=== PATIENT | male | born 1975 | race Caucasian/White ===

== ENCOUNTER 2023-11-13 15:29 | Outpatient (REF) | payer MEDICAID, SELFPAY ==
[2023-11-13 17:15] LABS: Cholesterol 309 mg/dL (<200); HDL Cholesterol 63 mg/dL (>40); LDL Cholesterol Calculated 178 mg/dL (<100); Triglycerides 340 mg/dL (<150)
[2023-11-13 18:29] LABS: CT PCR NOT DETECTED (Not Detect.); NG PCR NOT DETECTED (Not Detect.)
[2023-11-14 03:56] LABS: HIV AB/AG Nonreactive (Nonreactive); HIV Num 1 0.05 S/CO (0.00-0.99)
[2023-11-16 12:18] LABS: RPR Rapid Plasma Reagin NON-REACTIVE (NON-REACTIVE)
== END 2023-11-13 15:30 | disposition home or self-care (01) ==
LOC: HO.HHCL 15:29
PROVIDERS: Visit Provider Nurse Practitioner Primary Care
DX: E78.00 Pure hypercholesterolemia, unspecified (principal); Z11.3 Encounter for screening for infections with a predominantly sexual mode of transmission
CPT/HCPCS: 0353U; 36415; 80061; 86592; 87389

== ENCOUNTER 2023-12-17 10:59 | Outpatient (AMB) | payer MEDICAID, SELFPAY ==
--- NOTE | 2023-12-17 11:27 | A.OFFVIS_ITS ---
Intake Intake Visit Reasons: Vasectomy Consult Intake Note: NEW Patient presents today for Vasectomy Consult: Meds- None Allergies to Antibiotic- No Known Allergies Blood Thinner- None Patient has 1 Child, has 2 Child Milk Runner Required: No Accompanied by: Self / Same As Patient Allergies opioids Allergy (Mild, Uncoded 12/17/23 11:32) Itching HPI HPI Comments History of Present Illness Details Solomon is a 48-year-old male who is here for vasectomy consultation. He has 1 child who is 18, he has remarried in his has 2 children. He states he and his current do not want any more children. He states that currently she is on a Depo control method. Vasectomy procedure was discussed at length with the patient. He was informed that vasectomy is a safe, permanent, and effective form of control but there are risks involved. It may involve risk of hematoma, procedure failure, which is rare, sperm granuloma which may cause mild pain, and congestion which may cause sense of pressure and generally resolves after several weeks. 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 The patient was advised that it is necessary to use other types of control methods for > 12 weeks and until we evaluate semen for analysis to make sure there is no more sperm in the semen which is done after two and a half months post vasectomy. The patient is agreeable to proceed with scheduling vasectomy. He is side the [place] 30 day consent form. He would like to have it done in the office with Dr. Galvan. [facility] Surgical History History of release of tendon Social History Alcohol intake: current Alcohol intake frequency: holidays/special occasions only Patient Tobacco Use Status: Never used Tobacco Review of Systems Const All systems reviewed & are unremarkable except as noted in HPI and below Reports no additional complaints Eyes Reports no additional complaints ENT Reports no additional complaints Card Denies dyspnea Resp Denies cough and Denies dyspnea GI Reports no additional complaints Musc Reports no additional complaints Skin/Breast Denies unusual bruising Neuro Reports no additional complaints Psych Reports no additional complaints Endo Reports no additional complaints Jimmy/Lymph Reports no additional complaints Aller/Immun Reports no additional complaints Physical Exam Const General: healthy appearing, no acute distress and well developed Orientation/consciousness: patient oriented x3 HEENT Head: Yes normocephalic and Yes atraumatic Eyes Conjunctivae: conjunctivae normal Neck Neck: Yes normal visual inspection Chest Chest palpation & inspection: normal inspection of the chest Resp Effort & Inspection: normal respiratory effort Cardio Rate: regular rate GI Inspection: Yes normal to inspection Skin General skin exam: no rashes or lesions noted Neuro General: patient oriented x3 Extrem General: No pedal edema Psych Appearance: grossly normal Affect: normal affect Results AMB Urinalysis, Automated UA Leukoctes 0 Parviz/uL Last Edit by CHUCHO Koenig on 12/17/23 11:44 UA Nitrite Negative Last Edit by CHUCHO Koenig on 12/17/23 11:44 UA Urobilinogen 0.2 mg/dL Last Edit by CHUCHO Koenig on 12/17/23 11:4 4 UA Protein 0 mg/dL Last Edit by CHUCHO Koenig on 12/17/23 11:44 UA pH 6.5 Last Edit by CHUCHO Koenig on 12/17/23 11:44 UA Blood 6.5 Selvin/uL Last Edit by CHUCHO Koenig on 12/17/23 11:44 UA Specific Norton 0 Last Edit by CHUCHO Koenig on 12/17/23 11:44 UA Ketone Negative Last Edit by CHUCHO Koenig on 12/17/23 11:44 UA Bilirubin 0 mg/dL Last Edit by CHUCHO Koenig on 12/17/23 11:44 UA Glucose 0 mg/dL Last Edit by CHUCHO Koenig on 12/17/23 11:44 Results Reviewed Results Reviewed: Laboratory Last Values Urine pH (Auto) 6.5 12/17/23 11:42 Specific Norton (Auto) 0 12/17/23 11:42 Urine Protein (Auto) 0 mg/dL 12/17/23 11:42 Glucose (UA)(Auto) 0 mg/dL 12/17/23 11:42 Urine Ketones (Auto) Negative 12/17/23 11:42 Urine Blood (Auto) 6.5 Selvin/uL 12/17/23 11:42 Urine Nitrite (Auto) Negative 12/17/23 11:42 Urine Bilirubin (Auto) 0 mg/dL 12/17/23 11:42 Urine Urobilinogen (Auto) 0.2 mg/dL 12/17/23 11:42 Leukocyte Esterase (Auto) 0 Parviz/uL 12/17/23 11:42 Assessment & Plan Assessment & Plan (1) Vasectomy evaluation: Code(s): Z30.09 - Encounter for other general counseling and advice on contraception (2) Anxiety about health: Code(s): R45.89 - Other symptoms and signs involving emotional state Plan Schedule vasectomy in the office with Dr. Galvan Orders: Orders AMB Urinalysis Automated Today Z13.9 - Encounter for screening, unspecified Patient Instructions: The patient had an opportunity to ask questions regarding treatment plan. All questions were answered. No major barriers to understanding were identified. The patient expressed understanding and agreement with the above treatment plan. The patient is aware they should contact our office by phone for worsening of their current condition or the appearance of new symptoms. Compliance is encouraged with any medications and followup testing that is ordered. It is a privilege to be allowed the opportunity to participate in the urologic care of your patient. If you have any questions or concerns regarding treatment for the above conditions please do not hesitate to contact me. The office telephone contact is [phone]. This note is constructed in part using voice recognition software. While every effort has been made to ensure accuracy engine cowling installer errors may have been included. Yours sincerely, Americo Huerta MD Coding Level of Care Code New Pt Level 4 (13387) Diagnoses Vasectomy evaluation Z30.09 Anxiety about health R45.89
== END 2023-12-17 12:12 | disposition home or self-care (01) ==
PROVIDERS: PCP Nurse Practitioner Primary Care; Visit Provider Urology
DX: Z30.09 Encounter for other general counseling and advice on contraception (principal); R45.89 Other symptoms and signs involving emotional state; Z13.9 Encounter for screening, unspecified
CPT/HCPCS: 99204

== ENCOUNTER → 2023-12-17 10:59 | Outpatient (BNVA) | payer MEDICAID, SELFPAY | PROVIDERS: PCP Nurse Practitioner Primary Care; Visit Provider Urology | DX: Z30.09 Encounter for other general counseling and advice on contraception (principal); F41.8 Other specified anxiety disorders | CPT/HCPCS: 81003; 99202 ==

== ENCOUNTER 2024-03-18 15:10 | Outpatient (AMB) | payer MEDICAID, SELFPAY ==
--- NOTE | 2024-03-18 15:37 | A.OFFVIS_ITS ---
Intake Visit Reasons: vasectomy Intake Note: Patient is present for vasectomy Allergies opioids Allergy (Mild, Uncoded 12/17/23 11:32) Itching Medication List - Last Reconciled 03/18/24 by Danis Galvan MD bupropion HCl 75 mg PO DAILY citalopram 40 mg PO QAM diazepam 2 mg PO BID PRN 1 day HPI Comments Details: Solomon is a 48-year-old male who is here for vasectomy consultation. He has 1 child who is 18, he has remarried in his has 2 children. He states he and his current do not want any more children. He states that currently she is on a Depo control method. Vasectomy procedure was discussed at length with the patient. He was informed that vasectomy is a safe, permanent, and effective form of control but there are risks involved. It may involve risk of hematoma, procedure failure, which is rare, sperm granuloma which may cause mild pain, and congestion which may cause sense of pressure and generally resolves after several weeks. 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 The patient was advised that it is necessary to use other types of control methods for > 12 weeks and until we evaluate semen for analysis to make sure there is no more sperm in the semen which is do ne after two and a half months post vasectomy. The patient is agreeable to proceed with scheduling vasectomy. He is side the [place] 30 day consent form. He would like to have it done in the office with Dr. Galvan. [facility] Surgical History History of release of tendon Social History Alcohol intake: current Alcohol intake frequency: holidays/special occasions only Patient Tobacco Use Status: Never used Tobacco Review of Systems Const Denies chills and Denies fever(s) Card Reports no additional complaints and Denies syncope Resp Denies cough GI Denies abdominal pain and Denies heartburn Reports as per HPI and Denies change in libido Neuro Denies syncope Psych Denies change in libido Endo Denies change in libido Physical Exam Const General: cooperative, healthy appearing, comfortable and no acute distress Orientation/consciousness: patient oriented x3 HEENT Face and sinus: Yes normal facial exam Mouth: moist mucous membranes Neck Neck: Yes normal visual inspection, Yes full ROM and Yes trachea midline Chest Chest palpation & inspection: normal inspection of the chest Resp Effort & Inspection: normal respiratory effort, able to speak in complete sentences and no respiratory distress GI Inspection: Yes normal to inspection Back/Spine/Pelvis Cervical Spine: normal cervical lordosis Thoracic/Lumbar Spine: thoracic and lumbar spine normal to inspection Skin General skin exam: no rashes or lesions noted Neuro General: patient oriented x3, gait normal, tone normal and moves all extremities Extrem General: Yes normal to inspection and Yes capillary refill normal Office Procedures Vasectomy Details: Preoperative diagnosis: Anxiety regarding Postoperative diagnosis: Anxiety regarding unplanned Procedure: Bilateral vasectomy Informed consent had been completed. Preoperative and postoperative instructions were provided to the patient. The patient has transportation to home identified at the completion of the procedure. Anti-anxiolytic prescription medication had been taken after consent verification and all questions answered. Tylenol with Codeine pain medication was also provided. The penis was elevated using a rubber band that was attached to the patient's shirt. Both vasa were palpated through the skin using a 3 finger technique and the penoscrotal junction was prepped with Betadine. After Betadine application the left vas was elevated using a 3 finger grasping technique. 1% lidocaine was used to create a subdermal bubble. Further anesthetic was then advanced using the 25-gauge needle along the vasa in a proximal fashion. Approximately 2 minutes were allowed to for local anesthetic uptake. Using the sharp spreading instrument the scrotal skin was spread longitudinally in line with the vasa until the subdermal layer had been divided. The vasa was then elevated from the scrotum using a ring clamp. Care was taken to elevate the superior portion of the vasa by rotating the ring clamp in a caudad direction. The battery powered cautery was used to divide the vasal sheath in a longitudinal direction on the exposed vasa and to strip the vasal sheath from the vasa. A 2nd narrower ring clamp was placed on the exposed vas and used to lift the vas from the vasal sheath. so it grasped the elevated vas. The cautery was used to divide vasal attachments and allow full exposure of a small loop of vasa. The sharp spreading instrument was then used to create a tunnel under the vasa and spread to allow the blood vessels of the vasa to retract from the vasa. A mosquito clamp was placed on the proximal portion of the vas. The battery- powered cautery was used to make a partial division in the proximal vas and then inserted in order to cauterize the proximal end of the vas. This was then cut and allowed to retract into the vasal sheath. The mosquito was then used to twist the vasa 180 degrees creating a fascial interposition. Using a 4-0 chromic suture the fascial interposition was sutured closed. The distal portion of the vas was then cut in order to obtain a segment of vasa. The vasa were allowed to retract back into the scrotum. A small snap was then used to approximate the skin edges and allow hemostasis without placement of a suture. A similar procedure was repeated on the right side. He tolerated the procedure well. Triple antibiotic was applied. A gauze was applied. An ice pack was applied to assist with minimizing swelling. Postoperative instructions were confirmed. He understands the need to continue to use control methods. A semen sample should be brought for inspection under the microscope in 10-12 weeks. CPT 62407 Vasectomy performed by: Danis Galvan Informed consent given: Yes Informed consent signed: Yes Time out checklist: patient, procedure, site marked/identified, positioning of patient, supplies available, allergies confirmed and team agrees on procedure Anesthetic used: other Specimens: vas segments not sent to pathology 82071 - Vasectomy Assessment & Plan Assessment & Plan (1) Anxiety about health: Code(s): R45.89 - Other symptoms and signs involving emotional state Category: Medical Plan 3m f/u Medications: New diazepam Take medication after arrival at office 2 mg PO BID PRN 2 tabs 0RF anxiety 1 day R45.89 - Other symptoms and signs involving emotional state diazepam Take medication after arrival at office 2 mg PO BID PRN 2 tabs 0RF anxiety 1 day R45.89 - Other symptoms and signs involving emotional state Patient Instructions: Imaging studies, laboratory and physical exam results were discussed and reviewed in detail. No major barriers to patient understanding were identified. An opportunity to ask questions regarding the treatment plan was provided. All questions were answered. The patient expressed understanding and agreement with the above treatment plan. The patient is aware they should contact our office by phone for worsening of their current condition or the appearance of new urologic symptoms. Compliance is encouraged with any medications and followup testing that is ordered. It is a privilege to participate in the urologic care of your patient. If you have any questions or concerns regarding treatment for the above conditions, or other urologic issues, please do not hesitate to contact me. The office telephone contact is [phone]. This note is constructed using voice recognition software. While every effort has been made to ensure accuracy instructor looping errors may have been included. Yours sincerely, Dr Danis Galvan MD, [facility] - Urology Providers of Expert, Compassionate Care for the Genitourinary System Coding Level of Care Code Procedure Only Diagnoses Anxiety about health R45.89 CPT Codes Office Procedure - CPT: 66516 - Vasectomy ([id number])
== END 2024-03-18 16:27 | disposition home or self-care (01) ==
PROVIDERS: PCP Nurse Practitioner Primary Care; Referring Provider Family Medicine; Visit Provider Urology
DX: Z30.2 Encounter for sterilization (principal)
CPT/HCPCS: 55250

== ENCOUNTER → 2024-03-18 15:10 | Outpatient (BNVA) | payer MEDICAID, SELFPAY | PROVIDERS: PCP Nurse Practitioner Primary Care; Visit Provider Urology | DX: Z30.2 Encounter for sterilization (principal); F41.8 Other specified anxiety disorders | CPT/HCPCS: 55250 ==

== ENCOUNTER 2024-06-17 13:32 | Outpatient (AMB) | payer MEDICAID, SELFPAY ==
--- NOTE | 2024-06-17 13:35 | MHC.OFFVIS ---
Intake Visit Reasons: 3m/ semen analysis Intake Note: Patient is present for 3M/SEMEN ANALYSIS Urology Medication:DIAZEPAM Antibiotic Allergy:NONE Blood Thinner:NONE Admission Nurse Required: No Allergies opioids Allergy (Mild, Uncoded 06/17/24 13:36) Itching HPI Comments Details: Solomon is a 48-year-old male who is here for vasectomy follow-up. Minimal issues following procedure No sperm seen on high-powered field evaluation in office today from sample [facility] Surgical History History of release of tendon Social History Alcohol intake: current Alcohol intake frequency: holidays/special occasions only Patient Tobacco Use Status: Never used Tobacco Review of Systems Const Denies chills and Denies fever(s) Card Reports no additional complaints and Denies syncope Resp Denies cough GI Denies abdominal pain and Denies heartburn Reports as per HPI and Denies change in libido Neuro Denies syncope Psych Denies change in libido Endo Denies change in libido Physical Exam Const General: cooperative, healthy appearing, comfortable and no acute distress Orientation/consciousness: patient oriented x3 HEENT Face and sinus: Yes normal facial exam Mouth: moist mucous membranes Neck Neck: Yes normal visual inspection, Yes full ROM and Yes trachea midline Chest Chest palpation & inspection: normal inspection of the chest Resp Effort & Inspection: normal respiratory effort, able to speak in complete sentences and no respiratory distress GI Inspection: Yes normal to inspection Back/Spine/Pelvis Cervical Spine: normal cervical lordosis Thoracic/Lumbar Spine: thoracic and lumbar spine normal to inspection Skin General skin exam: no rashes or lesions noted Neuro General: patient oriented x3, gait normal, tone normal and moves all extremities Extrem General: Yes normal to inspection and Yes capillary refill normal Assessment & Plan Assessment & Plan (1) Anxiety about health: Code(s): R45.89 - Other symptoms and signs involving emotional state Category: Medical Plan P.r.n. follow-up Patient Instructions: Imaging studies, laboratory and physical exam results were discussed and reviewed in detail. No major barriers to patient understanding were identified. An opportunity to ask questions regarding the treatment plan was provided. All questions were answered. The patient expressed understanding and agreement with the above treatment plan. The patient is aware they should contact our office by phone for worsening of their current condition or the appearance of new urologic symptoms. Compliance is encouraged with any medications and followup testing that is ordered. It is a privilege to participate in the urologic care of your patient. If you have any questions or concerns regarding treatment for the above conditions, or other urologic issues, please do not hesitate to contact me. The office telephone contact is [phone]. This note is constructed using voice recognition software. While every effort has been made to ensure accuracy home health care respiratory therapist errors may have been included. Yours sincerely, Dr Danis Galvan MD, [facility] - Urology Providers of Expert, Compassionate Care for the Genitourinary System Coding Level of Care Code Est Pt Level 3 (43664) Diagnoses Anxiety about health R45.89
== END 2024-06-17 14:52 | disposition home or self-care (01) ==
PROVIDERS: PCP Nurse Practitioner Primary Care; Referring Provider Nurse Practitioner Primary Care; Visit Provider Urology
DX: R45.89 Other symptoms and signs involving emotional state (principal)
CPT/HCPCS: 99213

== ENCOUNTER → 2024-06-17 13:32 | Outpatient (BNVA) | payer MEDICAID, SELFPAY | PROVIDERS: PCP Nurse Practitioner Primary Care; Visit Provider Urology | DX: R45.89 Other symptoms and signs involving emotional state (principal); Z30.8 Encounter for other contraceptive management; Z98.52 Vasectomy status | CPT/HCPCS: 99212 ==

== ENCOUNTER 2024-12-19 14:13 | Outpatient (REF) | payer SELFPAY ==
--- OUTSIDE RECORDS SUMMARY | 2024-12-19 16:39 | XMS_ITS | Encounter Summary ---
Author Organization [email or web address] Address [address] [place] [address] Care Team Providers Care Dinkey Driver Name Role Phone Cheryle Rubalcava Primary Care Provider [phone] Reason for Visit * Reason Comments Med Refill Encounter Details Date Type Department Care Team ([facility] st Contact Info) Description 12/01/2024 Refill [facility] [address] [place], [place] [phone] Cheryle Rubalcava ANP [address] [place], [place] [phone] Anxiety and depression; Impaired concentration Social History Tobacco Use Types Packs/Day Years Used Date Smoking Tobacco: Never Smokeless Tobacco: Never Alcohol Use Standard Drinks/Week Comments Not Currently 0 (1 standard drink = 0.6 oz pur e alcohol) Depression Answer Date Recorded Patient Health Questionnaire-9 Score 0 11/13/2023 Patient Health Questionnaire-9 Score 0 11/13/2023 Last PHQ-9: Questionnaire Data Not on file 0 11/13/2023 Housing Stability Answer Date Recorded What is your housing situation today? I have belkis phelan 08/04/[address] you li ve. Do you have problems with any of the following? None of the above 08/04/2023 Food Insecurity Answer Date Recorded Within the past 12 months, y ou worried that your food would run out before you got money to buy more: Never True 08/04/2023 Within the past 12 months,th e food you bought just didn't last and you didn't have enough money to get more: Never True Transportation Answer Date Recorded In the past 12 months, has l ack of transportation kept you from medical appts, meetings, work or from getting things needed for daily living? No 08/04/2023 Utilities Answer Date Recorded In the past 12 months, has t he electric, gas, oil or water company threatened to shut off services in your home? No 08/04/2023 Depression Answer Date Recorded Patient Health Questionnaire-2 Score 0 11/13/2023 Sex and Gender Information Value Date Recorded Sex Assigned at Male 09/03/2022 2:46 PM EST Legal Sex Male 2:46 PM EST Gender Identity Male 09/03/2022 2:46 PM EST Sexual Orientation Straight 09/03/2022 2: 46 PM EST documented as of this encounter Miscellaneous Notes * Telephone Encounter - Sandi Baptiste LPN - 12/01/2024 9:19 AM EST Next appointment 12/19/24. documented in this encounter Plan of Treatment Not on file documented as of this encounter Visit Diagnoses Diagnosis Anxiety and depression Impaired concentration documented in this encounter Additional Health Concerns Assessment Noted Time PHQ-9 Depression Total Score: 0 11/13/19 24 2:36 PM EST documented as of this encounter Care Teams Dinkey Driver Relationship Specialty Start Date End Date Cheryle Rubalcava ANP [address] [place] [id number] PCP - General Family Medicine 08/14/22 documented as of this encounter
--- OUTSIDE RECORDS SUMMARY | 2024-12-19 16:39 | XMS_ITS | Encounter Summary ---
Author Organization [employer] Address [address] [place] [address] Care Team Providers Care Litigation Counsel Name Role Phone Cheryle Rubalcava Primary Care Provider [phone] Reason for Visit * Reason Comments Pre-visit Planning SDOH screening negat heike and tobacco screening positive Encounter Details Date Type Department Care Team ([facility] Contact Info) Description 12/12/[address] [facility] [address] [place], [place] [phone] Cheryle Rubalcava ANP [address] [place] [address] Pre-visit Planning (SDOH screening negative and tobacco screening positive) Social History Tobacco Use Types Packs/Day Years [...] housing situation today? I have belkis phelan 12/12/[address] you li ve. Do you have problems with any of the following? None of the above 12/12/2024 Food Insecurity Answer Date Recorded Within the past 12 months, y ou worried that your food would run out before you got money to buy more: Never True 12/12/2024 Within the past 12 months,th e food you bought just didn't last and you didn't have enough money to get more: Never True 07/2025 Transportation Answer Date Recorded In the past 12 months, has l ack of transportation kept you from medical appts, meetings, work or from getting things needed for daily living? No 12/12/2024 Utilities Answer Date Recorded In the past 12 months, has t he electric, gas, oil or water company threatened to shut off services in your home? No 12/12/2024 Depression Answer Date Recorded Patient Health Questionnaire-2 Score 0 11/13/2023 Internet Access Answer Date Recorded Internet Access Q1 Yes 12/12/2024 Internet Access Q2 Not on file 12/12/2024 Sex and Gender Information Value Date Recorded Sex Assigned at Male 09/03/2022 2:46 PM EST Legal Sex Male 2:46 PM EST Gender Identity Male 09/03/2022 2:46 PM EST Sexual Orientation Straight 09/03/2022 2: 46 PM EST documented as of this encounter Progress Notes * Dana Moore - 12/12/2024 10:05 AM EDT CC Dana placed successful outbound call to patient for pre-visit planning. Patient name and confirmed. Patient confirms appt date and time, and has transportation. Biggest concern for appointment at this time is vision care Patient advised to bring to appointment a photo id and insurance card. Appropriate screenings completed in anticipation of appointment. documented in this encounter Plan of Treatment Not on file documented as of this encounter Visit Diagnoses Not on filedocumented in this encounter Additional Health Concerns Assessment Noted Time PHQ-9 Depression Total Score: 0 11/13/19 24 2:36 PM EST documented as of this encounter Care Teams Litigation Counsel Relationship Specialty Start Date End Date Cheryle Rubalcava ANP [address] [place] [address] PCP - General Family Medicine 08/14/22 documented as of this encounter
--- OUTSIDE RECORDS SUMMARY | 2024-12-19 16:39 | XMS_ITS | Encounter Summary ---
Author Organization [employer] Address [address] [facility] 7 [place] [address] Care Team Providers Care Cmm Programmer Name Role Phone Cheryle Rubalcava Primary Care Provider [phone] Reason for Visit * Reason Onset Date Comments Med Refill 12/01/2024 Encounter Details Date Type Department Care Team ([facility] st Contact Info) Description 12/01/2024 Telephone [facility] MEDICINE [address] [place], [place] [phone] Cheryle Rubalcava ANP [address] [place] [address] Med Refill Social History Tobacco Use Types Packs/Day Years [...] Encounter - Sandi Baptiste LPN - 12/01/2024 9:20 AM EST Medication pended to PCP. * Telephone Encounter - Reynaldo Myers - 12/01/2024 9:11 AM EST TC from pt requesting medication refill. Medications needing refill : buPROPion (Wellbutrin) 75 MG tablet To be sent to: [facility]/pharmacy #[id number] - [address] [place] documented in this encounter Plan of Treatment Not on file documented as of this encounter Visit Diagnoses Not on filedocumented in this encounter Additional Health Concerns Assessment Noted Time PHQ-9 Depression Total Score: 0 11/13/19 24 2:36 PM EST documented as of this encounter Care Teams Cmm Programmer Relationship Specialty Start Date End Date Cheryle Rubalcava ANP [address] [place] [address] PCP - General Family Medicine 08/14/22 documented as of this encounter
--- OUTSIDE RECORDS SUMMARY | 2024-12-19 16:39 | XMS_ITS | Encounter Summary ---
Author Organization [employer] Address 75 [facility] 7t [place] [address] Care Team Providers Care Scrub Woman Name Role Phone Cheryle Rubalcava Primary Care Provider [phone] Encounter Details Date Type Department Care Team (Latest Contact Info) Description 12/19/2024 Travel Social History Tobacco Use Types Packs/Day Years [...] PM EST documented as of this encounter Plan of Treatment Not on file documented as of this encounter Visit Diagnoses Not on filedocumented in this encounter Additional Health Concerns Assessment Noted Time PHQ-9 Depression Total Score: 0 11/13/19 24 2:36 PM EST documented as of this encounter Care Teams Scrub Woman Relationship Specialty Start Date End Date Cheryle Rubalcava ANP [address] [place] [address] PCP - General Family Medicine 08/14/22 documented as of this encounter
--- OUTSIDE RECORDS SUMMARY | 2024-12-19 16:40 | XMS_ITS | Encounter Summary ---
Author Organization [email or web address] Address 75 [facility] 7 [place] [address] Care Team Providers Care Peoplesoft Taleo Manager Name Role Phone Cheryle Rubalcava Primary Care Provider [phone] Reason for Visit * Reason Onset Date Comments Med Refill 12/30/2023 Encounter Details Date Type Department Care Team ([facility] st Contact Info) Description 12/30/2023 Refill [facility] MEDICINE 230 [place], [place] [phone] Cheryle Rubalcava ANP [address] [place] [address] Anxiety and depression Social History Tobacco Use Types Packs/Day Years [...] encounter Visit Diagnoses Diagnosis Anxiety and depression documented in this encounter Additional Health Concerns Assessment Noted Time PHQ-9 Depression Total Score: 0 11/13/19 24 2:36 PM EST documented as of this encounter Care Teams Peoplesoft Taleo Manager Relationship Specialty Start Date End Date Cheryle Rubalcava ANP [address] [place] [address] PCP - General Family Medicine 08/14/22 documented as of this encounter
--- OUTSIDE RECORDS SUMMARY | 2024-12-19 16:40 | XMS_ITS | Encounter Summary ---
Author Organization [employer] Address 75 [facility] 7 [place] [address] Care Team Providers Care Bench Shear Operator Name Role Phone Cheryle Rubalcava Primary Care Provider [phone] Reason for Visit * Reason Onset Date Comments Med Refill 03/25/2024 Encounter Details Date Type Department Care Team ([facility] st Contact Info) Description 03/25/2024 Refill [facility] MEDICINE 230 [place], [place] [phone] Cheryle Rubalcava ANP [address] [place] [address] Anxiety and depression Social History Tobacco Use [...] documented as of this encounter Care Teams Bench Shear Operator Relationship Specialty Start Date End Date Cheryle Rubalcava ANP [address] [place] [address] PCP - General Family Medicine 08/14/22 documented as of this encounter
--- OUTSIDE RECORDS SUMMARY | 2024-12-19 16:40 | XMS_ITS | Encounter Summary ---
Author Organization [employer] Address 75 [facility] 7 [place] [address] Care Team Providers Care Silverware Etcher Name Role Phone Cheryle Rubalcava Primary Care Provider [phone] Reason for Visit * Reason Onset Date Comments Med Refill 02/24/2024 Encounter Details Date Type Department Care Team ([facility] st Contact Info) Description 02/24/[address] [facility] MEDICINE [address] [place], [place] [phone] Cheryle Rubalcava ANP 230 [place] [address] Anxiety and depression; Impaired concentration Social History [...] documented as of this encounter Care Teams Silverware Etcher Relationship Specialty Start Date End Date Cheryle Rubalcava ANP [address] [place] [address] PCP - General Family Medicine 08/14/22 documented as of this encounter
--- OUTSIDE RECORDS SUMMARY | 2024-12-19 16:40 | XMS_ITS | Encounter Summary ---
Author Organization [employer] Address 75 [facility] 7 [place] [address] Care Team Providers Care Cheese Cutter Name Role Phone Cheryle Rubalcava Primary Care Provider [phone] Reason for Visit * Reason Onset Date Comments Med Refill 03/28/2024 Encounter Details Date Type Department Care Team ([facility] st Contact Info) Description 03/28/2024 Telephone [facility] MEDICINE 230 [place], [place] [phone] Cheryle Rubalcava ANP 230 [place] [address] Med Refill Social History Tobacco Use Types [...] Telephone Encounter - Sandi Baptiste LPN - 03/28/2024 11:46 AM EDT Medication was sent to [facility] #[id number] on 02/26/24 #30 with 1 refill. * Telephone Encounter - Yana Moore - 03/28/2024 11:31 AM EDT TC from pt requesting medication refill. Medications needing refill : citalopram (CeleXA) 40 MG tablet To be sent to: [facility]/pharmacy #[id number] - [place] - [address] documented in this encounter Plan of Treatment Not on file documented as of this encounter Visit Diagnoses Not on filedocumented in this encounter Additional Health Concerns Assessment Noted Time PHQ-9 Depression Total Score: 0 11/13/19 24 2:36 PM EST documented as of this encounter Care Teams Cheese Cutter Relationship Specialty Start Date End Date Cheryle Rubalcava ANP 230 [place] [address] PCP - General Family Medicine 08/14/22 documented as of this encounter
--- OUTSIDE RECORDS SUMMARY | 2024-12-19 16:40 | XMS_ITS | Encounter Summary ---
Author Organization [employer] Address 75 [facility] 7 [place] [address] Care Team Providers Care Handle Turner Name Role Phone Cheryle Rubalcava Primary Care Provider [phone] Reason for Visit * Reason Onset Date Comments Med Refill 03/17/2024 Encounter Details Date Type Department Care Team ([facility] st Contact Info) Description 03/17/2024 Refill [facility] MEDICINE 230 [place], [place] [phone] Cheryle Rubalcava ANP 230 [place] [address] Anxiety and depression Social History Tobacco Use [...] documented as of this encounter Care Teams Handle Turner Relationship Specialty Start Date End Date Cheryle Rubalcava ANP [address] [place] [address] PCP - General Family Medicine 08/14/22 documented as of this encounter
--- OUTSIDE RECORDS SUMMARY | 2024-12-19 16:40 | XMS_ITS | Encounter Summary ---
Author Organization [employer] Address 75 [facility] 7 [place] [address] Care Team Providers Care Seam Stay Stitcher Name Role Phone Cheryle Rubalcava Primary Care Provider [phone] Reason for Visit * Reason Onset Date Comments Med Refill 01/06/2024 Encounter Details Date Type Department Care Team ([facility] st Contact Info) Description 01/06/2024 Refill [facility] MEDICINE 230 [place], [place] [phone] Cheryle Rubalcava ANP 230 [place] [address] Anxiety and depression Social History Tobacco Use [...] documented as of this encounter Care Teams Seam Stay Stitcher Relationship Specialty Start Date End Date Cheryle Rubalcava ANP [address] [place] [address] PCP - General Family Medicine 08/14/22 documented as of this encounter
--- OUTSIDE RECORDS SUMMARY | 2024-12-19 16:40 | XMS_ITS | Encounter Summary ---
Author Organization [employer] Address 75 [facility] 7 [place] [address] Care Team Providers Care Green Chain Puller Name Role Phone Cheryle Rubalcava Primary Care Provider [phone] Reason for Visit * Reason Onset Date Comments Med Refill 06/01/2024 Encounter Details Date Type Department Care Team ([facility] st Contact Info) Description 06/01/2024 Telephone [facility] MEDICINE 230 [place], [place] [phone] Cheryle Rubalcava ANP 230 [place] [address] Med Refill Social History Tobacco Use Types [...] Telephone Encounter - Sandi Baptiste LPN - 06/01/2024 4:03 PM EDT Medication pended to PCP. * Telephone Encounter - Pepe Luo - 06/01/2024 4:03 PM EDT TC from pt requesting medication refill. Medications needing refill : buPROPion (Wellbutrin) 75 MG tablet To be sent to: [facility] documented in this encounter Plan of Treatment Not on file documented as of this encounter Visit Diagnoses Not on filedocumented in this encounter Additional Health Concerns Assessment Noted Time PHQ-9 Depression Total Score: 0 11/13/19 24 2:36 PM EST documented as of this encounter Care Teams Green Chain Puller Relationship Specialty Start Date End Date Cheryle Rubalcava ANP 230 [place] [address] PCP - General Family Medicine 08/14/22 documented as of this encounter
--- OUTSIDE RECORDS SUMMARY | 2024-12-19 16:40 | XMS_ITS | Clinical Summary ---
Author Organization [employer] Address 75 [facility] 7t [place] [address] Care Team Providers Care Systems Manager Name Role Phone Cheryle Rubalcava Primary Care Provider [phone] Allergies No known active allergies Medications citalopram (CeleXA) 40 MG tabletIndications :Anxiety and depression TAKE 1 TABLET BY MOUTH EVERY DAY IN THE MORNING 90 tablet 1 08/01/20 24 Active buPROPion (Wellbutrin) 75 MG tabletIndications :Anxiety and depression,Impair ed concentration TAKE 1 TABLET BY MOUTH EVERY DAY 90 tablet 1 12/02/19 25 Active losartan (Cozaar) 50 MG tabletIndications :Primary hypertension Take 1 tablet (50 mg) by mouth Once per day. 90 tablet 3 12/20/19 25 026 Active Blood Pressure kitIndications:El evated blood pressure reading without diagnosis of hypertension 1 kit Once per day. 1 kit 12/20/19 25 Active Blood Pressure kitIndications:El evated blood pressure reading without diagnosis of hypertension 1 kit in the morning. 1 kit 03/27/20 23 025 Discontinued(Re order (will not trigger notification to Pharmacy)) losartan (Cozaar) 25 MG tablet Take 1 tablet (25 mg) by mouth in the morning. 30 tablet 11 12/23/19 24 025 Discontinued(Do se adjustment) buPROPion (Wellbutrin) 75 MG tabletIndications :Anxiety and depression,Impair ed concentration TAKE 1 TABLET BY MOUTH EVERY DAY 90 tablet 1 06/01/20 24 025 Discontinued Hospital, Clinic, or Other Facility Administered Medication Ordered Dose Route Frequency Start Date End Date Status lidocaine (Xylocaine) 2 % injection 20 mgIndications:Neoplasm of uncertain behavior 20 mg IJ Once 06/17/2024 Active Active Problems Problem Noted Date Diagnosed Date Anxiety and depression 12/23/2022 Impaired concentration 09/01/2022 Lyme disease, unspecified 04/02/2022 Depression 05/28/2016 Encounters Date Type Department Care Team Description 12/19/2024 1:30 PM EDT Office Visit [address] [address] Cheryle Rubalcava ANP Healthcare maintenance (Primary Dx); Anxiety and depression; Primary hypertension; Encounter for immunization; Elevated blood pressure reading without diagnosis of hypertension 12/19/2024 Travel 12/12/2024 Patient Outreach [address] [address] Cheryle Rubalcava ANP Pre-visit Planning (SDOH screening negative and tobacco screening positive) 12/01/[address] [address] Cheryle Rubalcava ANP Med Refill 12/01/[address] [address] Cheryle Rubalcava ANP Anxiety and depression; Impaired concentration 11/03/[address] [address] Cheryle Rubalcava ANP Referral 10/03/[address] [address] Yesi Coreas [place] November recall from Last 3 Months Immunizations Name Administration Dates Next Due Hep B, adult 11/13/2023 Influenza injectable quadriv alent preservative free 07/03/2023,08/14/2022,07/05/2018 Influenza, seasonal, injecta ble, preservative free 12/19/2024 Pfizer Covid-19 Vaccine 12+ 12/19/2024 Pfizer Covid-19 Vaccine 12+ Bivalent 03/27/2023 Tdap 11/13/2023 Social History Tobacco Use Types Packs/Day Years Used Date Smoking Tobacco: Never Smokeless Tobacco: Never Tobacco Cessation:Counseling Given: Not Answered Alcohol Use Standard Drinks/Week Comments Not Currently [...] Orientation Straight 09/03/2022 2: 46 PM EST Last Filed Vital Signs Vital Sign Reading Time Taken Comments Blood Pressure 132/98 12/19/2024 1:58 PM EDT Pulse 76 12/19/2024 1:27 PM EDT Temperature 36.7 ??C (98.1 ??F) 12/19/2024 1:27 PM ED T Respiratory Rate 20 12/19/2024 1:27 PM EDT Oxygen Saturation 97% 12/19/2024 1:27 PM EDT Inhaled Oxygen Concentration - - Weight 77 kg (169 lb 12.8 oz) 12/19/2024 1:27 PM EDT Height 170.2 cm (5' 7 ) 12/19/2024 1:27 PM EDT Body Mass Index 26.59 12/19/2024 1:27 PM EDT Plan of Treatment Health Maintenance Due Date Last Done Comments CT Colonography 1977 Colonoscopy 1977 Dental Oral Exam 1977 Dental Prophylaxis 1977 Dental X-Ray: Bitewings 1977 Dental X-Ray: Full Mouth 1977 FIT 1977 FOBT 1977 Sigmoidoscopy 1977 Family Planning (PISQ) 1992 Hepatitis B Vaccines (2 of 3 - 19+ 3-dose series) 12/11/2023 11/13/2023 Depression Screening 11/13/2024 11/13/2023, 11/13/19 24 SDOH Screening 12/12/2025 12/12/2024 Alcohol/Substance Use Screening 12/19/2025 12/19/2024 Tobacco Screening 12/19/2025 12/19/2024 Colorectal Cancer Screening 12/17/2026 FIT DNA/Cologuard 12/17/2026 12/18/2023 Zoster Vaccines (1 of 2) 2027 Lipid Panel 11/13/2028 11/13/2023, 08/14/2022 DTaP/Tdap/Td Vaccines (2 - Td or Tdap) 11/13/2033 11/13/2023 RSV Patients and Patients Aged 60 years or older (1 - 1-dose 75+ series) 2052 Hepatitis C Screening Completed 08/14/2022 HIV Screening Completed 11/13/2023, 08/14/2022 COVID-19 Vaccine Completed 12/19/2024, , 10/06/2021, Additional history exists Influenza Vaccine Completed 12/19/2024, , 08/14/2022, Additional history exists HIB Vaccines Aged Out No longer eligi ble based on patient's age to complete this topic HPV Vaccines Aged Out No longer eligi ble based on patient's age to complete this topic Hepatitis A Vaccines Aged Out No long er eligible based on patient's age to complete this topic IPV Vaccines Aged Out No longer eligi ble based on patient's age to complete this topic Meningococcal Vaccine Aged Out No leeanne el eligible based on patient's age to complete this topic Pneumococcal Vaccine: Pediatrics (0 to 5 Years) and At-Risk Patients (6 to 49) Years) Aged Out No longer eligible based on patient's age to complete this topic RSV under 20 months Aged Out No longe r eligible based on patient's age to complete this topic Rotavirus Vaccines Aged Out No longer eligible based on patient's age to complete this topic Procedures Procedure Name Priority Date/Time Associated Diagnosis Comments LAB COLOGUARD?? COLON CANCER SCREEN Routine 12/18/2023 8:12 AM EDT Screening for malignant neoplasm of colon HIV 1/2 ANTIGEN/ANTIBODY, FOURTH GENERATION W/RFL Routine 11/13/2023 3:30 PM EST Routine screening for STI (sexually transmitted infection) LIPID PANEL, STANDARD Routine 11/13/2023 12:28 PM EST Elevated LDL cholesterol level ZZZ HISTORICAL HEPATITIS C AB W/REFL TO HCV RNA, QN, PCR Routine 08/14/2022 11:59 AM EST from Last 3 Months or Most Recently Relevant to Health Maintenance Results * Cologuard?? colon cancer screening (12/18/2023 8:12 AM EDT) Cologuard Result Negative Negative 12/25/19 24 6:00 PM EDT [facility] (CLIA #:[id number]) Comment: NEGATIVE TEST RESULT. A negative Cologuard result indicates a low likelihood that a colorectal cancer (CRC) or advanced adenoma (adenomatous polyps with more advanced pre-malignant features) ??is present. The chance that a person with a negative Cologuard test has a colorectal cancer is less than 1 in 1500 (negative predictive value >99.9%) or has an ??advanced adenoma is less than ??5.3% (negative predictive value 94.7%). These data are based on a prospective cross-sectional study of 10,000 individuals at average risk for colorectal cancer who were screened with both Cologuard and colonoscopy. (Dilma Adams al, N Engl J Med 2014;370(14):1286- 1297) The normal value (reference range) for this assay is negative. COLOGUARD RE-SCREENING RECOMMENDATION: Periodic colorectal cancer screening is an important part of preventive healthcare for asymptomatic individuals at average risk for colorectal cancer. ??Following a negative Cologuard result, the [place] [employer] and U.S. Multi-Society Task Force screening guidelines recommend a Cologuard re-screening interval of 3 years. References: [place] [employer] Guideline for Colorectal Cancer Screening: https://www.cancer.org/cancer/dohjd-nldlih-krfanr/vzfoscins-ugyciuvit-lfktusa/ac s-rec ommendations.html.; Can DK, Huy KIM, Ruddy BearK, Colorectal Cancer Screening: Recommendations for Physicians and Patients from the U.S. Multi-Society Task Force on Colorectal Cancer Screening , Am J Gastroenterology 2017; 112:0566-0002. TEST DESCRIPTION: Composite algorithmic analysis of stool DNA-biomarkers with hemoglobin immunoassay. ?? Quantitative values of individual biomarkers are not reportable and are not associated with individual biomarker result reference ranges. Cologuard is intended for colorectal cancer screening of adults of either sex, 45 years or older, who are at average-risk for colorectal cancer (CRC). Cologuard has been approved for use by the U.S. FDA. The performance of Cologuard was established in a cross sectional study of average-risk adults aged 50-84. Cologuard performance in patients ages 45 to 49 years was estimated by sub-group analysis of near-age groups. Colonoscopies performed for a positive result may find as the most clinically significant lesion: colorectal cancer [4.0%], advanced adenoma (including sessile serrated polyps greater than or equal to 1cm diameter) [20%] or non- advanced adenoma [31%]; or no colorectal neoplasia [45%]. These estimates are derived from a prospective cross-sectional screening study of 10,000 individuals at average risk for colorectal cancer who were screened with both Cologuard and colonoscopy. (Dilma Adams al, N Engl J Med 2014;370(14):0940-9490.) Cologuard may produce a false negative or false positive result (no colorectal cancer or precancerous polyp present at colonoscopy follow up). A negative Cologuard test result does not guarantee the absence of CRC or advanced adenoma (pre-cancer). The current Cologuard screening interval is every 3 years. ([place] [employer] and U.S. Multi-Society Task Force). Cologuard performance data in a 10,000 patient pivotal study using colonoscopy as the reference method can be accessed at the following location: www.[employer]/results. Additional description of the Cologuard test process, warnings and precautions can be found at www.cologuard.com. Stool specimen (specimen) 12/18/2023 8:12 AM EDT 12/21/2023 12:13 PM EDT Cheryle Rubalcava [facility] MOLECULAR DIAGNOSTICS ORDERA BLES Final Result [facility] (CLIA #:[id number]) [address] [place] [address], * HIV-1/2 Antigen and Antibodies, Fourth Generation, with Reflexes (11/13/2023 3:30 PM EST) HIV AB/AG Nonreactive Nonreactive [facility] Comment:HIV-1 p24 Ag and/or HIV-1/HIV-2 Ab not detected.A test result that is nonreactive does not exclude thepossibility of exposure to or infection with HIV-1 and/orHIV-2. Nonreactive results in this assay for individualswith prior exposure to HIV-1 and/or HIV-2 may be due toantigen and antibody levels that are below the limit ofdetection of this assay.The [employer] HIV Ag/Ab Combo assay result andsupplemental assay results should be interpreted inconjunction with the patient's clinical presentation,history and other laboratory results. If the results areinconsistent with clinical evidence, additional testing issuggested to confirm the result. Blood Venous blood specimen / Unknown 11/13/2023 3:30 PM EST 11/13/2023 4:01 PM EST Cheryle Rubalcava [facility] BLOOD ORDERABLES Final Resul t [facility] [address] [place] [phone] * (ABNORMAL) Lipid Panel, Standard (11/13/2023 12:28 PM EST) Triglycerides 340(H) <150 mg/dL [facility] Comment:Desirable Triglyceri de: less than 150 mg/dLBorderline High Triglyceride 150-199 mg/dLHigh Triglyceride: 200-499 mg/dLVery High Triglyceride: greater than or equal to 5OO mg/dL Cholesterol 309(H) <200 mg/dL [facility] Comment:Desirable Cholestero l: less than 200 mg/dLBorderline High Cholesterol: 200-239 mg/dLHigh Cholesterol: greater than 239 mg/dL LDL Cholesterol Calculated 178(H) <100 mg/dL [facility] Comment:Desirable LDL: less than 100 mg/dLNear Optimal/Above Optimal LDL: 110- 129 mg/dLBorderline High LDL: 130-159 mg/dLHigh LDL: 160-189 mg/dLVery High LDL: greater than or equal to 190 mg/dL HDL Cholesterol 63 >40 mg/dL [facility] Comment:Desirable HDL: great er than 40 mg/dL Note: This HDL assay may give artificially low results in patients with liver disease. Blood Venous blood specimen / Unknown 11/13/2023 12:28 PM EST 11/13/2023 4:01 PM EST [facility] BLOOD ORDERABLES Final Resul t [facility] [address] [place] [address] [phone] * HEPATITIS C AB W/REFL TO HCV RNA, QN, PCR (08/14/2022 11:59 AM EST) HEPATITIS C ANTIBODY NON-REACTI VE NON-REACT JESUS ALBERTO [facility] INDEX 0.07 <1.00 [facility] Comment: ?? HCV antibody was non-reactive. There is no laboratory ?? evidence of HCV infection. ?? In most cases, no further action is required. However, if recent HCV exposure is suspected, a test for HCV RNA (test code 93571) is suggested. ?? For additional information please refer to http://education.[employer].com/faq/YUK41r3 (This link is being provided for informational/ educational purposes only.) ?? 08/14/2022 11:5 9 AM EST us Cheryle RANGEL HISTORICAL/NON ORDERABLE LABS Fi nal Result [facility] from Last 3 Months or Most Recently Relevant to Health Maintenance Insurance PPO Care Teams Systems Manager Relationship Specialty Start Date End Date Cheryle Rubalcava ANP [address] [place] [phone] PCP - General Family Medicine 08/14/22
--- OUTSIDE RECORDS SUMMARY | 2024-12-19 16:40 | XMS_ITS | Encounter Summary ---
Author Organization [employer] Address [address] [place] [address] 7 [place] [address] Care Team Providers Care Rubber Stamp Assembler Name Role Phone Cheryle Rubalcava Primary Care Provider [phone] Reason for Visit * Reason Comments Med Refill Encounter Details Date Type Department Care Team ([facility] st Contact Info) Description 01/20/2023 Refill [facility] MEDICINE [address] [place] [address] Cheryle Rubalcava ANP [address] [place] [address] Social History Tobacco Use Types Packs/Day Years Used Date Smoking Tobacco: Never Smokeless Tobacco: Never Alcohol Use Standard Drinks/Week Comments Not Currently 0 (1 standard drink = 0.6 oz pur e alcohol) Sex and Gender Information Value Date Recorded Sex Assigned at Male 09/03/2022 2:46 PM EST Legal Sex Male 2:46 PM EST Gender Identity Male 09/03/2022 2:46 PM EST Sexual Orientation Straight 09/03/2022 2: 46 PM EST COVID-19 Exposure Response Date Recorded In the last 10 days, have yo u been in contact with someone who was confirmed or suspected to have Coronavirus/COVID-19? No / Unsure 12/23/2022 3:01 PM EDT documented as of this encounter Plan of Treatment Not on file documented as of this encounter Visit Diagnoses Not on filedocumented in this encounter Care Teams Rubber Stamp Assembler Relationship Specialty Start Date End Date Cheryle Rubalcava ANP [address] [place] [address] PCP - General Family Medicine 08/14/22 documented as of this encounter
--- OUTSIDE RECORDS SUMMARY | 2024-12-19 16:40 | XMS_ITS | Encounter Summary ---
Author Organization [employer] Address [address] [facility] 7 [place] [address] Care Team Providers Care Prepper Name Role Phone Cheryle Rubalcava Primary Care Provider [phone] Reason for Referral * Consultation (Routine) - Authorized Specialty Diagnoses / Procedures Referred By Sara michael Referred To Contact Optometry Diagnoses Primary hypertension Cheryle Rubalcava ANP [address] [place] [address] Phone: tel: fax: [facility] OPTOMETRY [address] [place] [address] Phone: tel: fax: Referral ID Status Reason Start Date Expiration Date Visits Requested Visits Authorized [id number] Authorized Consult and Treat 12/19/2024 12/19/2025 1 1 Encounter Details Date Type Department Care Team ([facility] st Contact Info) Description 12/19/2024 1:30 PM EDT Office Visit [facility] MEDICINE [address] [place] [address] Cheryle Rubalcava ANP [address] [place] [address] Healthcare maintenance (Primary Dx); Anxiety and depression; Primary hypertension; Encounter for immunization; Elevated blood pressure reading without diagnosis of hypertension Social History Tobacco Use Types Packs/Day Years [...] PM EST documented as of this encounter Last Filed Vital Signs Vital Sign Reading [...] Mass Index 26.59 12/19/2024 1:27 PM EDT documented in this encounter Plan of Treatment Scheduled Orders Name Type Priority Associated Diagnoses Orde r Schedule Lipid Panel, Standard Lab Routine Primary hypertension Expected: 12/19/2024 (Approximate), Expires: 12/19/2025 Comprehensive Metabolic Panel Lab Routine Primary hypertension Expected: 12/19/2024 (Approximate), Expires: 12/19/2025 Scheduled Referrals Name Type Priority Associated Diagnoses Orde r Schedule Referral to [facility] Eye Care Outpatient Referral Routine Primary hypertension Expected: 12/19/2024 (Approximate), Expires: 12/19/2025 documented as of this encounter Visit Diagnoses Diagnosis Healthcare maintenance- Primary Anxiety and depression Primary hypertension Unspecified essential hypertension Encounter for immunization Elevated blood pressure reading without diagnosis of hypertension documented in this encounter Additional Health Concerns Assessment Noted Time PHQ-9 Depression Total Score: 0 11/13/19 24 2:36 PM EST documented as of this encounter Care Teams Prepper Relationship Specialty Start Date End Date Cheryle Rubalcava ANP [address] [place] [address] PCP - General Family Medicine 08/14/22 documented as of this encounter
[2024-12-19 17:11] LABS: Alanine Aminotransferase 61 U/L (0-40); Albumin Level 4.7 g/dL (3.5-5.0); Alkaline Phosphatase 71 U/L (39-117); Anion Gap 16 (12-20); Aspartate Amino Transferase 35 U/L (5-37); Bilirubin Total 0.8 mg/dL (0.0-1.0); Blood Urea Nitrogen 18 mg/dL (9-16); Calcium 9.7 mg/dL (8.4-10.2); Carbon Dioxide 22 mmol/L (22-29); Chloride 104 mmol/L (96-108); Cholesterol 379 mg/dL (<200); Estimated Glomerular Filt Rate > 60; Glucose Random 90 mg/dL (60-115); HDL Cholesterol 51 mg/dL (>40); Potassium 4.3 mmol/L (3.3-5.1); Sodium 138 mmol/L (135-145); Total Protein 7.8 g/dL (6.5-8.0); Triglycerides 556 mg/dL (<150)
== END 2024-12-19 14:14 | disposition home or self-care (01) ==
LOC: HO.HHCL 14:13
PROVIDERS: Visit Provider Nurse Practitioner Primary Care
DX: I10 Essential (primary) hypertension (principal)
CPT/HCPCS: 36415; 80053; 80061

== ENCOUNTER 2025-02-03 14:53 | Outpatient (REF) | payer SELFPAY ==
--- NOTE | ~2025-02-03 | XR_ITS ---
EXAMINATION: XR ANKLE 3 OR MORE VIEWS LEFT HISTORY: left ankle pain x 1 week COMPARISON: There are no prior studies available for comparison. FINDINGS: Four views of the left ankle are submitted. Osseous mineralization is normal. There is no fracture or dislocation. The joint spaces are preserved. The soft tissues are unremarkable. XR/XR ankle LT min 3V IMPRESSION: Unremarkable examination of the left ankle. Electronically signed by: Thien Gary MD 02/03/2025 03:11 PM EDT
--- OUTSIDE RECORDS SUMMARY | 2025-02-03 14:58 | XMS_ITS | Encounter Summary ---
Author Organization [employer] Address [address] [place] [address] Care Team Providers Care Quality Assurance Monitor Chassis Name Role Phone Cheryle Rubalcava Primary Care Provider [phone] Reason for Visit * Reason Onset Date Comments Med Refill 02/24/2024 Encounter Details Date Type Department Care Team (Late st Contact Info) Description 02/24/2024 Refill [facility] MEDICINE 230 [place] [address] Cheryle Rubalcava ANP [address] [place] [address] Anxiety and depression; Impaired concentration Social History [...] as of this encounter Plan of Treatment Upcoming Encounters Date Type Department Care Team (Late st Contact Info) Description 03/06/2025 9:00 AM EDT Office Visit [facility] OPTOMETRY [address] [place], [place] [phone] Eveline Pinon, OD [address] [place] [address] documented as of this encounter Visit Diagnoses Diagnosis Anxiety and depression Impaired concentration documented in this encounter Additional Health Concerns Assessment Noted Time PHQ-9 Depression Total Score: 0 11/13/19 24 2:36 PM EST documented as of this encounter Care Teams Quality Assurance Monitor Chassis Relationship Specialty Start Date End Date Cheryle Rubalcava ANP [address] [place] [address] PCP - General Family Medicine 08/14/22 documented as of this encounter
--- OUTSIDE RECORDS SUMMARY | 2025-02-03 14:58 | XMS_ITS | Encounter Summary ---
Author Organization [employer] Address [address] [place] [address] Care Team Providers Care Compact Assembler Name Role Phone Cheryle Rubalcava Primary Care Provider [phone] Reason for Visit * Reason Onset Date Comments Med Refill 12/01/2024 Encounter Details Date Type Department Care Team (Late st Contact Info) Description 12/01/2024 Telephone [facility] MEDICINE [address] [place] [address] Cheryle Rubalcava ANP 230 [place] [address] Med Refill Social History Tobacco Use Types [...] 75 MG tablet To be sent to: [facility]/pharmacy #[id number] NEXT TO [address] documented in this encounter Plan of Treatment Upcoming Encounters Date Type Department Care Team (Late st Contact Info) Description 03/06/2025 9:00 AM EDT Office Visit [facility] OPTOMETRY [address] [place] [address] TarEveline mary, OD [address] [place] [address] documented as of this encounter Visit Diagnoses Not on filedocumented in this encounter Additional Health Concerns Assessment Noted Time PHQ-9 Depression Total Score: 0 11/13/19 24 2:36 PM EST documented as of this encounter Care Teams Compact Assembler Relationship Specialty Start Date End Date Cheryle Rubalcava ANP 230 [place] [address] PCP - General Family Medicine 08/14/22 documented as of this encounter
--- OUTSIDE RECORDS SUMMARY | 2025-02-03 14:58 | XMS_ITS | Encounter Summary ---
Author Organization [employer] Address [address] [place] [address] Care Team Providers Care Snout Puller Name Role Phone Cheryle Rubalcava ANP Primary Care Provider Reason for Visit * Reason Comments Med Refill Encounter Details Date Type Department Care Team (Late Contact Info) Description 01/20/2023 Refill [facility] MEDICINE [address] [place] [address] Cheryle Rubalcava ANP [address] [place] [address] Social History Tobacco Use Types Packs/Day Years [...] Description 03/06/2025 9:00 AM EDT Office Visit [facility] OPTOMETRY [address] [place] [address] Eveline Pinon, OD [address] [place] [address] documented as of this encounter Visit Diagnoses Not on filedocumented in this encounter Care Teams Snout Puller Relationship Specialty Start Date End Date Cheryle Rubalcava ANP 230 [place] [address] PCP - General Family Medicine 08/14/22 documented as of this encounter
--- OUTSIDE RECORDS SUMMARY | 2025-02-03 14:58 | XMS_ITS | Encounter Summary ---
Author Organization [employer] Address [address] [place] [address] Care Team Providers Care Hawk Missile System Crewmember Name Role Phone Cheryle Rubalcava Primary Care Provider [phone] Reason for Visit * Reason Comments Med Refill Encounter Details Date Type Department Care Team ([facility] st Contact Info) Description 02/01/2025 Refill [facility] MEDICINE [address] [place] [address] Cheryle Rubalcava ANP [address] [place] [address] Anxiety and depression Social History Tobacco Use [...] Description 03/06/2025 9:00 AM EDT Office Visit [facility] OPTOMETRY [address] [place] [address] Eveline Pinon, OD [address] [place] [address] documented as of this encounter Visit Diagnoses Diagnosis Anxiety and depression documented in this encounter Additional Health Concerns Assessment Noted Time PHQ-9 Depression Total Score: 0 11/13/19 24 2:36 PM EST documented as of this encounter Care Teams Hawk Missile System Crewmember Relationship Specialty Start Date End Date Cheryle Rubalcava ANP 230 [place] [address] PCP - General Family Medicine 08/14/22 documented as of this encounter
--- OUTSIDE RECORDS SUMMARY | 2025-02-03 14:58 | XMS_ITS | Encounter Summary ---
Author Organization [employer] Address [address] [facility] 7t [place] [address] Care Team Providers Care Critical Power Technician Name Role Phone Cheryle Rubalcava Primary Care Provider [phone] Encounter Details Date Type Department Care Team (Latest Contact Info) Description 02/02/2025 Travel Social History Tobacco Use Types Packs/Day Years Used Date Smoking Tobacco: Never Smokeless Tobacco: Never Alcohol Use Standard Drinks/Week Comments Not Currently 0 (1 standard drink = 0.6 oz pur e alcohol) Depression Answer Date Recorded Patient Health Questionnaire-9 Score 4 02/03/2025 Patient Health Questionnaire-9 Score 4 02/03/2025 Last PHQ-9: Questionnaire Data Not on file 0 02/03/2025 Housing Stability Answer Date Recorded What is [...] Answer Date Recorded Patient Health Questionnaire-2 Score 1 02/03/2025 Internet Access Answer Date Recorded Internet Access [...] Description 03/06/2025 9:00 AM EDT Office Visit [facility] OPTOMETRY 267 [place] [address] TarEveline mary, OD [address] [place] [address] documented as of this encounter Visit Diagnoses Not on filedocumented in this encounter Additional Health Concerns Assessment Noted Time PHQ-9 Depression Total Score: 0 11/13/19 24 2:36 PM EST documented as of this encounter Care Teams Critical Power Technician Relationship Specialty Start Date End Date Cheryle Rubalcava ANP [address] [place] [address] PCP - General Family Medicine 08/14/22 documented as of this encounter
--- OUTSIDE RECORDS SUMMARY | 2025-02-03 14:58 | XMS_ITS | Encounter Summary ---
Author Organization [employer] Address [address] [place] [address] Care Team Providers Care Decay Control Operator Name Role Phone Cheryle Rubalcava Primary Care Provider [phone] Reason for Visit * Reason Onset Date Comments Med Refill 06/01/2024 Encounter Details Date Type Department Care Team (Late st Contact Info) Description 06/01/2024 Telephone [facility] MEDICINE [address] [place] [address] Cheryle Rubalcava ANP 230 [place] [address] Med Refill Social History Tobacco Use Types [...] Description 03/06/2025 9:00 AM EDT Office Visit [facility] OPTOMETRY [address] [place] [address] Eveline Pinon, DARSHANA 267 [place] [address] documented as of this encounter Visit Diagnoses Not on filedocumented in this encounter Additional Health Concerns Assessment Noted Time PHQ-9 Depression Total Score: 0 11/13/19 24 2:36 PM EST documented as of this encounter Care Teams Decay Control Operator Relationship Specialty Start Date End Date Cheryle Rubalcava ANP 230 [place] [address] PCP - General Family Medicine 08/14/22 documented as of this encounter
--- OUTSIDE RECORDS SUMMARY | 2025-02-03 14:58 | XMS_ITS | Encounter Summary ---
Author Organization [employer] Address [address] [place] [address] Care Team Providers Care Nfl Player Name Role Phone Cheryle Rubalcava Primary Care Provider [phone] Reason for Visit * Reason Onset Date Comments Med Refill 12/30/2023 Encounter Details Date Type Department Care Team (Late st Contact Info) Description 12/30/[address] [facility] MEDICINE [address] [place] [address] Cheryle Rubalcava ANP [address] [place] [address] Anxiety and depression Social History Tobacco Use [...] Description 03/06/2025 9:00 AM EDT Office Visit [facility] OPTOMETRY 267 [place], [place] [phone] Eveline Pinon, OD [address] [place] [address] documented as of this encounter Visit Diagnoses Diagnosis Anxiety and depression documented in this encounter Additional Health Concerns Assessment Noted Time PHQ-9 Depression Total Score: 0 11/13/19 24 2:36 PM EST documented as of this encounter Care Teams Nfl Player Relationship Specialty Start Date End Date Cheryle Rubalcava ANP [address] [place] [address] PCP - General Family Medicine 08/14/22 documented as of this encounter
--- OUTSIDE RECORDS SUMMARY | 2025-02-03 14:58 | XMS_ITS | Encounter Summary ---
Author Organization [employer] Address [address] [place] [address] Care Team Providers Care Construction Ironworker Helper Name Role Phone Cheryle Rubalcava Primary Care Provider [phone] Reason for Visit * Reason Onset Date Comments Med Refill 01/06/2024 Encounter Details Date Type Department Care Team (Late st Contact Info) Description 01/06/2024 Refill [facility] MEDICINE [address] [place] [address] Cheryle Rubalcava ANP [address] [place] [address] Anxiety and depression Social History Tobacco Use [...] Description 03/06/2025 9:00 AM EDT Office Visit [facility] OPTOMETRY [address] [place], [place] [phone] Eveline Pinon, OD [address] [place] [address] documented as of this encounter Visit Diagnoses Diagnosis Anxiety and depression documented in this encounter Additional Health Concerns Assessment Noted Time PHQ-9 Depression Total Score: 0 11/13/19 24 2:36 PM EST documented as of this encounter Care Teams Construction Ironworker Helper Relationship Specialty Start Date End Date Cheryle Rubalcava ANP [address] [place] [address] PCP - General Family Medicine 08/14/22 documented as of this encounter
--- OUTSIDE RECORDS SUMMARY | 2025-02-03 14:58 | XMS_ITS | Encounter Summary ---
Author Organization [employer] Address [address] [place] [address] Care Team Providers Care Agile Coach Name Role Phone Cheryle Rubalcava Primary Care Provider [phone] Reason for Visit * Reason Onset Date Comments Med Refill 03/28/2024 Encounter Details Date Type Department Care Team (Late st Contact Info) Description 03/28/2024 Telephone [facility] MEDICINE 230 [place] [address] Cheryle Rubalcava ANP [address] [place] [address] Med Refill Social History Tobacco Use Types [...] 11:46 AM EDT Medication was sent to [facility] #[id number] on 02/26/24 #30 with 1 refill. * Telephone Encounter - Yana Moore - 03/28/2024 11:31 AM EDT TC from pt requesting medication refill. Medications needing refill : citalopram (CeleXA) 40 MG tablet To be sent to: [facility]/pharmacy #[id number] - [place] - [address] documented in this encounter Plan of Treatment Upcoming Encounters Date Type Department Care Team (Late st Contact Info) Description 03/06/2025 9:00 AM EDT Office Visit [facility] OPTOMETRY [address] [place] [address] TarEveline mary, OD [address] [place] [address] documented as of this encounter Visit Diagnoses Not on filedocumented in this encounter Additional Health Concerns Assessment Noted Time PHQ-9 Depression Total Score: 0 11/13/19 2:36 PM EST documented as of this encounter Care Teams Agile Coach Relationship Specialty Start Date End Date Cheryle Rubalcava ANP [address] [place] [address] PCP - General Family Medicine 08/14/22 documented as of this encounter
--- OUTSIDE RECORDS SUMMARY | 2025-02-03 14:58 | XMS_ITS | Encounter Summary ---
Author Organization [employer] Address [address] [facility] 7 [place] [address] Care Team Providers Care Mushroom Growth Media Mixer Name Role Phone Cheryle Rubalcava Primary Care Provider [phone] Encounter Details Date Type Department Care Team (Latest Contact Info) Description 02/03/2025 Travel Social History Tobacco Use Types Packs/Day Years Used Date Smoking Tobacco: Former Cigarettes Passive Smoke Exposure: Past Smokeless Tobacco: Former Alcohol Use Standard Drinks/Week Comments Not Currently [...] 03/06/2025 9:00 AM EDT Office Visit [facility] OPTOMETRY [address] [place] [address] Eveline Pinon, OD [address] [place] [address] documented as of this encounter Visit Diagnoses Not on filedocumented in this encounter Additional Health Concerns Assessment Noted Time PHQ-9 Depression Total Score: 4 02/04/20 25 1:56 PM EDT documented as of this encounter Care Teams Mushroom Growth Media Mixer Relationship Specialty Start Date End Date Cheryle Rubalcava ANP [address] [place] [address] PCP - General Family Medicine 08/14/22 documented as of this encounter
--- OUTSIDE RECORDS SUMMARY | 2025-02-03 14:58 | XMS_ITS | Encounter Summary ---
Author Organization [employer] Address [address] [place] [address] Care Team Providers Care Lumber Carrier Name Role Phone Cheryle Rubalcava Primary Care Provider [phone] Reason for Visit * Reason Onset Date Comments Med Refill 03/25/2024 Encounter Details Date Type Department Care Team (Late st Contact Info) Description 03/25/2024 Refill [facility] MEDICINE [address] [place] [address] Cheryle Rubalcava ANP [address] [place] [address] Anxiety and depression Social History Tobacco Use [...] Description 03/06/2025 9:00 AM EDT Office Visit [facility] OPTOMETRY [address] [place], [place] [phone] Eveline Pinon, OD [address] [place] [address] documented as of this encounter Visit Diagnoses Diagnosis Anxiety and depression documented in this encounter Additional Health Concerns Assessment Noted Time PHQ-9 Depression Total Score: 0 11/13/19 24 2:36 PM EST documented as of this encounter Care Teams Lumber Carrier Relationship Specialty Start Date End Date Cheryle Rubalcava ANP [address] [place] [address] PCP - General Family Medicine 08/14/22 documented as of this encounter
--- OUTSIDE RECORDS SUMMARY | 2025-02-03 14:58 | XMS_ITS | Encounter Summary ---
Author Organization [employer] Address [address] [place] [address] Care Team Providers Care Manager Systems Name Role Phone Cheryle Rubalcava Primary Care Provider [phone] Reason for Visit * Reason Onset Date Comments Nurse Triage 02/02/2025 Encounter Details Date Type Department Care Team (Late st Contact Info) Description 02/02/[address] [facility] MEDICINE [address] [place] [address] Cheryle Rubalcava ANP [address] [place] [address] Nurse Triage Social History Tobacco Use Types Packs/Day Years [...] encounter Miscellaneous Notes * Telephone Encounter - Cristine Ruiz RN - 02/02/2025 2:18 PM EDT called pt to triage, spoke to pt. pt states several days duration of left ankle pain and swelling. pt denies known injury, severe swelling, redness, fevers, inability to stand or walk, or other associated symptoms. advised home care: rest, fluids, elevate, ice, heat, OTC pain reliever as needed andcall back if worsening or new concerns. given appt tomorrow with blue team provider at 1:30 for exam. pt understands and agrees with plan. insurance verified. Protocol Used: Ankle Pain (Adult) Protocol-Based Disposition: See in Office or Video Visit within 3 Days Video visit offer not recorded Positive Triage Questions: * Moderate pain (e.g., interferes with normal activities, limping) and present > 3 days * Swollen joint with no fever or redness * Patient wants to be seen * All higher-acuity triage questions were negative Care Advice Discussed: * Reassurance and Education - Ankle Pain * Pain Medicines * Reasons To Call Back - Moderate pain (such as limping) lasts over 3 days - Mild pain lasts over 7 days - You become worse * Telephone Encounter - Melina Ilia - 02/02/2025 1:36 PM EDT Symptom: Foot or Ankle Pain - Not From Injury Outcome: Schedule an urgent appointment (within 1 hour) or talk to a nurse or provider soon Reason: Trouble walking The caller accepted this outcome. Contact pt at [phone] documented in this encounter Plan of Treatment Upcoming Encounters Date Type Department Care Team ([facility] st Contact Info) Description 03/06/2025 9:00 AM EDT Office Visit [facility] OPTOMETRY [address] [place] [address] Eveline Pinon, OD [address] [place] [address] documented as of this encounter Visit Diagnoses Not on filedocumented in this encounter Additional Health Concerns Assessment Noted Time PHQ-9 Depression Total Score: 0 11/13/19 24 2:36 PM EST documented as of this encounter Care Teams Manager Systems Relationship Specialty Start Date End Date Cheryle Rubalcava ANP [address] [place] [address] PCP - General Family Medicine 08/14/22 documented as of this encounter
--- OUTSIDE RECORDS SUMMARY | 2025-02-03 14:58 | XMS_ITS | Clinical Summary ---
Author Organization [employer] Address [address] [facility] 7[address] [place] [address] Care Team Providers Care Lumber Piler Operator Name Role Phone Cheryle Rubalcava Primary Care Provider [phone] Allergies No known active allergies Medications buPROPion (Wellbutrin) 75 MG tabletIndication s:Anxiety and depression,Impai red concentration TAKE 1 TABLET BY MOUTH EVERY DAY 90 tablet 1 025 Active losartan (Cozaar) 50 MG tabletIndication s:Primary hypertension Take 1 tablet (50 mg) by mouth Once per day. 90 tablet 3 025 2025 Active Blood Pressure kitIndications:E levated blood pressure reading without diagnosis of hypertension 1 kit Once per day. 1 kit 025 Active atorvastatin (Lipitor) 20 MG tabletIndication s:Dyslipidemia, goal LDL below 100 Take 1 tablet (20 mg) by mouth at bedtime. 90 tablet 3 025 2025 Active citalopram (CeleXA) 40 MG tabletIndication s:Anxiety and depression TAKE 1 TABLET BY MOUTH EVERY DAY IN THE MORNING 90 tablet 025 Active Baclofen 5 % cream Apply 1 Application topically if needed in the morning and at bedtime (apply to left ankle for pain). 30 g 025 Active naproxen (Naprosyn) 500 MG tablet Take 1 tab bid for x 10 days then PRN 60 tablet 025 Active citalopram (CeleXA) 40 MG tabletIndication s:Anxiety and depression TAKE 1 TABLET BY MOUTH EVERY DAY IN THE MORNING 90 tablet 1 024 2024 Discontinued naproxen (Naprosyn) 500 MG tablet Take 1 tablet (500 mg) by mouth 2 times daily. 60 tablet 025 2024 Discontinued(O ther) Hospital, Clinic, or Other Facility Administered Medication Ordered Dose Route Frequency Start Date End Date Status lidocaine (Xylocaine) 2 % injection 20 mgIndications:Neoplasm of uncertain behavior 20 mg IJ Once 06/17/2024 Active Active Problems Problem Noted Date Diagnosed Date Status post vasectomy 12/19/2024 Anxiety and depression 12/23/2022 Impaired concentration 09/01/2022 Lyme disease, unspecified 04/02/2022 Resolved Problems Problem Noted Date Diagnosed Date Resolved Date Depression 05/28/2016 12/19/2024 Encounters Date Type Department Care Team Description 02/03/2025 1:30 PM EDT Office Visit [address] [address] Sadie Verduzco FNP Acute left ankle pain (Primary Dx) 02/03/2025 Travel 02/02/2025 Travel 02/02/[address] [address] Sadie Verduzco FNP Chart Prep 02/02/[address] [address] Cheryle Rubalcava ANP Nurse Triage 02/01/[address] [address] Cheryle Rubalcava ANP Anxiety and depression 12/20/2024 Orders Only [address] [address] Cheryle Rubalcava ANP 12/19/2024 1:30 PM EDT Office Visit [address] [address] Cheryle Rubalcava ANP Healthcare maintenance (Primary Dx); Anxiety and depression; Primary hypertension; Encounter for immunization; Elevated blood pressure reading without diagnosis of hypertension; Status post vasectomy; Dietary counseling; Exercise counseling; Dyslipidemia, goal LDL below 100 12/19/2024 Travel 12/12/2024 Patient Outreach [address] [address] Cheryle uRbalcava ANP Pre-visit Planning (SDOH screening negative and tobacco screening positive) 12/01/2024 Telephone [facility] [address] [place] [address] Cheryle Rubalcava ANP Med Refill 12/01/2024 Refill [facility] MEDICINE [address] [place] [address] Cheryle Rubalcava ANP Anxiety and depression; Impaired concentration from Last 3 Months Immunizations Name Administration Dates Next Due Hep B, adult 11/13/2023 Influenza injectable quadriv alent preservative free 07/03/2023,08/14/2022,07/05/2018 Influenza, seasonal, injecta ble, preservative free 12/19/2024 Pfizer Covid-19 Vaccine 12+ 12/19/2024 Pfizer Covid-19 Vaccine 12+ Bivalent 03/27/2023 Tdap 11/13/2023 Social History Tobacco Use Types Packs/Day Years Used Date Smoking Tobacco: Former Cigarettes Passive Smoke Exposure: Past Smokeless Tobacco: Former Tobacco Cessation:Counseling Given: Not Answered Alcohol Use [...] Sign Reading Time Taken Comments Blood Pressure 137/95 02/03/2025 1:43 PM EDT Pulse 80 02/03/2025 1:43 PM EDT Temperature 36.7 ??C (98.1 ??F) 02/03/2025 1:43 PM ED T Respiratory Rate 20 02/03/2025 1:43 PM EDT Oxygen Saturation 94% 02/03/2025 1:43 PM EDT Inhaled Oxygen Concentration - - Weight 76.3 kg (168 lb 2 oz) 02/03/2025 1:43 PM EDT Height 174.9 cm (5' 8.85 ) 02/03/2025 1:43 PM ED T Body Mass Index 24.94 02/03/2025 1:43 PM EDT Plan of Treatment Upcoming Encounters Date Type Department Care Team (Late st Contact Info) Description 03/06/2025 9:00 AM EDT Office Visit [facility] OPTOMETRY [address] [place] [address] TarkaEveline, OD [address] [place] [address] Health Maintenance Due Date Last Done Comments CT Colonography 1977 Colonoscopy 1977 Dental Oral Exam 1977 Dental Prophylaxis 1977 Dental X-Ray: Bitewings 1977 Dental X-Ray: Full Mouth 1977 FIT 1977 FOBT 1977 Sigmoidoscopy 1977 Family Planning (PISQ) 1992 Hepatitis B Vaccines (2 of 3 - 19+ 3-dose series) 12/11/2023 11/13/2023 SDOH Screening 12/12/2025 12/12/2024 Alcohol/Substance Use Screening 12/19/2025 12/19/2024 Depression Screening 02/03/2026 02/03/2025, 02/04/20 Tobacco Screening 02/03/2026 02/03/2025 Colorectal Cancer Screening 12/17/2026 FIT DNA/Cologuard 12/17/2026 12/18/2023 Zoster Vaccines (1 of 2) 2027 Lipid Panel 12/19/2029 12/19/2024, 02/0 06/2024, 08/14/2022 DTaP/Tdap/Td Vaccines (2 - Td or [...] Procedure Name Priority Date/Time Associated Diagnosis Comments COMPREHENSIVE METABOLIC PANEL Routine 12/19/2024 2:16 PM EDT Primary hypertension LIPID PANEL, STANDARD Routine 12/19/2024 2:16 PM EDT Primary hypertension LAB COLOGUARD?? COLON CANCER SCREEN Routine 12/18/2023 8:12 AM EDT Screening for malignant neoplasm of colon HIV 1/2 ANTIGEN/ANTIBODY, FOURTH GENERATION W/RFL Routine 11/13/2023 3:30 PM EST Routine screening for STI (sexually transmitted infection) AGUILAR HISTORICAL HEPATITIS C AB W/REFL TO HCV RNA, QN, PCR Routine 08/14/2022 11:59 AM EST from Last 3 Months or Most Recently Relevant to Health Maintenance Results * (ABNORMAL) Lipid Panel, Standard (12/19/2024 2:16 PM EDT) Triglycerides 556(H) <150 mg/dL [facility] Comment:Desirable Triglyceri de: less than 150 mg/dLBorderline High Triglyceride 150-199 mg/dLHigh Triglyceride: 200-499 mg/dLVery High Triglyceride: greater than or equal to 5OO mg/dL Cholesterol 379(H) <200 mg/dL [facility] Comment:Desirable Cholestero l: less than 200 mg/dLBorderline High Cholesterol: 200-239 mg/dLHigh Cholesterol: greater than 239 mg/dL LDL Cholesterol Calculated TNP <100 mg/dL [facility] Comment:Unable to calculate the LDL. The formula of Friedwald,Mendoza, and Татьяна is only valid if the triglycerides areless than 400 mg/dl. HDL Cholesterol 51 >40 mg/dL [facility] Comment:Desirable HDL: great er than 40 mg/dL Note: This HDL assay may give artificially low results in patients with liver disease. Blood Venous blood specimen / Unknown 12/19/2024 2:16 PM EDT 12/19/2024 4:24 PM EDT Cheryle Rubalcava [facility] LAB BLOOD ORDERABLES Final Resul t [facility] [address] [place] [address] [phone] * (ABNORMAL) Comprehensive Metabolic Panel (12/19/2024 2:16 PM EDT) Sodium 138 135 - 145 mmol/L [facility] Potassium 4.3 3.3 - 5.1 mmol/L [facility] Chloride 104 96 - 108 mmol/L [facility] Carbon Dioxide 22 22 - 29 mmol/L [facility] Anion Gap 16 12 - 20 [facility] Urea Nitrogen (BUN) 18(H) 9 - 16 mg/dL [facility] Creatinine, Serum 0.80 0.5 - 1.4 mg/dL [facility] Estimated Glomerular Filt Rate >60 [facility] Comment:Chronic Kidney Disea se: Estimated GFR < 60 mL/min/1.48q0Fetwhq Kidney Disease: Estimated GFR < 15 mL/min/1.73m2 Glucose 90 60 - 115 mg/dL [facility] Calcium 9.7 8.4 - 10.2 mg/dL [facility] Bilirubin, Total 0.8 0.0 - 1.0 mg/dL [facility] Aspartate Amino Transferase 35 5 - 37 U/L [facility] Alanine Aminotransferase 61(H) 0 - 40 U/L [facility] Total Protein 7.8 6.5 - 8.0 g/dL [facility] Albumin Level 4.7 3.5 - 5.0 g/dL [facility] Alkaline Phosphatase 71 39 - 117 U/L [facility] Blood Venous blood specimen / Unknown 12/19/2024 2:16 PM EDT 12/19/2024 4:24 PM EDT [facility] LAB BLOOD ORDERABLES Final Resul t [facility] [address] [place] [address] [phone] * Cologuard?? colon cancer screening (12/18/2023 8:12 AM EDT) Cologuard Result Negative Negative 12/25/19 6:00 PM EDT [facility] (CLIA #:[id number]) Comment: NEGATIVE TEST RESULT. A negative Cologuard [...] cancer. ??Following a negative Cologuard result, the [place] Cancer Society and U.S. Multi-Society Task Force screening guidelines recommend a Cologuard re-screening interval of 3 years. References: [place] Cancer Society Guideline for Colorectal Cancer Screening: https://www.cancer.org/cancer/ktyfh-lvkpbx-yzietc/vltxustrc-sjvmfqmec-ypvptud/ac s-rec ommendations.html.; Can RIVERS, Huy KIM, Ruddy BearK, Colorectal Cancer Screening: Recommendations for Physicians and Patients from the U.S. Multi-Society Task Force on Colorectal Cancer Screening , Am J Gastroenterology 2017; 112:2179-4007. TEST DESCRIPTION: Composite algorithmic analysis of stool [...] screened with both Cologuard and colonoscopy. (Dilma Sharma et al, N Engl J Med 2014;370(14):5876-0143.) Cologuard may produce a false negative or false positive result (no colorectal cancer or precancerous polyp present at colonoscopy follow up). A negative Cologuard test result does not guarantee the absence of CRC or advanced adenoma (pre-cancer). The current Cologuard screening interval is every 3 years. ([place] Cancer Society and U.S. Multi-Society Task Force). Cologuard performance data in a 10,000 patient pivotal study using colonoscopy as the reference method can be accessed at the following location: www.[employer]/results. Additional description of the Cologuard test process, warnings and precautions can be found at www.[employer].Assemblage. Stool specimen (specimen) 12/18/2023 8:12 AM EDT 12/21/2023 12:13 PM EDT [facility] ORDERA BLES Final Result [facility] (CLIA #:[id number]) [address] [place] [id number], * HIV-1/2 Antigen and Antibodies, Fourth Generation, with Reflexes (11/13/2023 3:30 PM EST) HIV AB/AG Nonreactive Nonreactive [facility] Comment:HIV-1 p24 Ag and/or HIV-1/HIV-2 Ab not detected.A test result that is nonreactive does not exclude thepossibility of exposure to or infection with HIV-1 and/orHIV-2. Nonreactive results in this assay for individualswith prior exposure to HIV-1 and/or HIV-2 may be due toantigen and antibody levels that are below the limit ofdetection of this assay.The [employer] HIV Ag/Ab Combo assay result andsupplemental assay results should be interpreted inconjunction with the patient's clinical presentation,history and other laboratory results. If the results areinconsistent with clinical evidence, additional testing issuggested to confirm the result. Blood Venous blood specimen / Unknown 11/13/2023 3:30 PM EST 11/13/2023 4:01 PM EST us Cheryle Rubalcava ANP LAB BLOOD ORDERABLES Final Resul t Performing Organization Address [facility] Co de Phone Number [facility] [address] [place] [address] [phone] * HEPATITIS C AB W/REFL TO [...] a test for HCV RNA (test code 57630) is suggested. ?? For additional information please refer to http://education.[employer]/faq/VDT23m1 (This link is being provided for informational/ educational purposes only.) ?? 08/14/2022 11:5 9 AM EST us Cheryle Rubalcava ANP HISTORICAL/NON ORDERABLE LABS Fi nal Result Performing Organization Address City/[facility] Co de Phone Number [facility] from Last 3 Months or Most Recently Relevant to Health Maintenance Insurance [facility] PPO Care Teams Lumber Piler Operator Relationship Specialty Start Date End Date Cheryle Rubalcava ANP [address] [place] [phone] PCP - General Family Medicine 08/14/22
--- OUTSIDE RECORDS SUMMARY | 2025-02-03 14:58 | XMS_ITS | Encounter Summary ---
Author Organization [employer] Address [address] [place] [address] [address] [address] Care Team Providers Care Branch Manager Name Role Phone Cheryle Rubalcava CLAIRE Primary Care Provider [phone] Reason for Visit * Reason Onset Date Comments Chart Prep 02/02/2025 Encounter Details Date Type Department Care Team (Late st Contact Info) Description 02/02/2025 Telephone [facility] MEDICINE [address] [place] [address] Sadie Verduzco FNP [address] [place] [address] Chart Prep Social History Tobacco Use Types Packs/Day Years [...] encounter Miscellaneous Notes * Telephone Encounter - Barbie Valenzuela [place] - 02/02/2025 2:37 PM EDT Chart Prep Labs: not done Images: not applicable Referrals: complete Vaccines due: Hep B Screenings: not applicable Overdue care gaps: PHQ-9, JUWAN-7, and Disability screen documented in this encounter Plan of Treatment Upcoming Encounters Date Type Department Care Team (Late st Contact Info) Description 03/06/2025 9:00 AM EDT Office Visit [facility] OPTOMETRY [address] [place] [address] Eveline Pinon, OD [address] [place] [address] documented as of this encounter Visit Diagnoses Not on filedocumented in this encounter Additional Health Concerns Assessment Noted Time PHQ-9 Depression Total Score: 0 11/13/19 24 2:36 PM EST documented as of this encounter Care Teams Branch Manager Relationship Specialty Start Date End Date Cheryle Rubalcava ANP [address] [place] [address] PCP - General Family Medicine 08/14/22 documented as of this encounter
--- OUTSIDE RECORDS SUMMARY | 2025-02-03 14:58 | XMS_ITS | Encounter Summary ---
Author Organization [employer] Address [address] [place] [address] Care Team Providers Care High School Foreign Language Teacher Name Role Phone Cheryle Rubalcava Primary Care Provider [phone] Reason for Visit * Reason Onset Date Comments Med Refill 03/17/2024 Encounter Details Date Type Department Care Team (Late st Contact Info) Description 03/17/2024 Refill [facility] MEDICINE [address] [place] [address] Cheryle Rubalcava ANP [address] [place] [address] Anxiety and depression Social History Tobacco Use [...] [facility] OPTOM[facility]RY [address] [place], [place] [phone] Eveline Pinon, OD [address] [place] [address] documented as of this encounter Visit Diagnoses Diagnosis Anxiety and depression documented in this encounter Additional Health Concerns Assessment Noted Time PHQ-9 Depression Total Score: 0 11/13/19 24 2:36 PM EST documented as of this encounter Care Teams High School Foreign Language Teacher Relationship Specialty Start Date End Date Cheryle Rubalcava ANP [address] [place] [phone] PCP - General Family Medicine 08/14/22 documented as of this encounter
--- OUTSIDE RECORDS SUMMARY | 2025-02-03 14:58 | XMS_ITS | Encounter Summary ---
Author Organization [employer] Address [address] [place] [address] [address] [place] [address] Care Team Providers Care Shopper Name Role Phone Cheryle Rubalcava Primary Care Provider [phone] Encounter Details Date Type Department Care Team (Late st Contact Info) Description 02/03/2025 1:30 PM EDT Office Visit [facility] MEDICINE [address] [place] [address] Sadie Verduzco FNP [address] [place] [address] Acute left ankle pain (Primary Dx) Social History Tobacco Use Types Packs/Day Years [...] Mass Index 24.94 02/03/2025 1:43 PM EDT documented in this encounter Plan of Treatment Upcoming Encounters Date Type Department Care Team (Late st Contact Info) Description 03/06/2025 9:00 AM EDT Office Visit [facility] OPTOMETRY [address] [place] [address] Eveline Pinon, OD [address] [place] [address] Scheduled Orders Name Type Priority Associated Diagnoses Orde r Schedule XR Ankle 3+ Views Left Imaging Routine Acute left ankle pain Expected: 02/03/2025, Expires: 02/03/2026 documented as of this encounter Visit Diagnoses Diagnosis Acute left ankle pain- Primary documented in this encounter Additional Health Concerns Assessment Noted Time PHQ-9 Depression Total Score: 4 02/04/20 25 1:56 PM EDT documented as of this encounter Care Teams Shopper Relationship Specialty Start Date End Date Cheryle Rubalcava ANP [address] [place] [address] PCP - General Family Medicine 08/14/22 documented as of this encounter
== END 2025-02-03 14:54 | disposition home or self-care (01) ==
LOC: HO.HHCX 14:53
PROVIDERS: Visit Provider Nurse Practitioner Family
DX: M25.572 Pain in left ankle and joints of left foot (principal)
CPT/HCPCS: 73610

== ENCOUNTER → 2025-02-03 14:53 | Outpatient (BNV) | payer SELFPAY | PROVIDERS: Visit Provider Radiology Diagnostic Radiology | DX: M25.572 Pain in left ankle and joints of left foot (principal) | CPT/HCPCS: 73610 ==

== ENCOUNTER 2025-08-28 13:48 | Outpatient (REF) | payer OTHER, SELFPAY ==
--- OUTSIDE RECORDS SUMMARY | 2025-08-28 13:00 | XMS_ITS | Encounter Summary ---
Author Organization [employer] Address [address] [place] [address] 7 [place] [address] Care Team Providers Care Hydraulic Boom Operator Name Role Phone Cheryle Rubalcava CLAIRE Primary Care Provider [phone] Reason for Visit * Reason Comments Sick Visit Persistent rash sinc e summer, arms and back Encounter Details Date Type Department Care Team (Late st Contact Info) Description 08/28/2025 1:00 PM EST Office Visit [facility] [address] [place], [place] [phone] Elvi Dao MD [address] [place], [place] [phone] Rash (Primary Dx); Routine screening for STI (sexually transmitted infection); Encounter for immunization Social History Tobacco Use Types Packs/Day Years [...] Sign Reading Time Taken Comments Blood Pressure 140/80 08/28/2025 1:08 PM EST Pulse 96 08/28/2025 1:08 PM EST Temperature 36.7 C (98.1 F) 08/28/2025 1:08 PM EST Respiratory Rate 20 08/28/2025 1:08 PM EST Oxygen Saturation - - Inhaled Oxygen Concentration - - Weight 82 kg (180 lb 12.8 oz) 08/28/2025 1:08 PM EST Height 174 cm (5' 8.5 ) 08/28/2025 1:08 PM EST Body Mass Index 27.09 08/28/2025 1:08 PM EST documented in this encounter Plan of Treatment Upcoming Encounters Date Type Department Care Team (Late st Contact Info) Description 11/03/2025 11:15 AM EST Office Visit [facility] [address] [place] [address] Cheryle Rubalcava ANP [address] [place] [address] Scheduled Orders Name Type Priority Associated Diagnoses Orde r Schedule Syphilis Screen Lab Routine Rash Routine screening for STI (sexually transmitted infection) Expected: 08/28/2025 (Approximate), Expires: 08/28/2026 Hepatitis C Antibody with Reflex to HCV, RNA, Quantitative, Real-Time PCR Lab Routine Routine screening for STI (sexually transmitted infection) Expected: 08/28/2025 (Approximate), Expires: 08/28/2026 Chlamydia/N. Gonorrhoeae RNA, TMA, Urogenitial Microbiology Routine Routine screening for STI (sexually transmitted infection) Expected: 08/28/2025 (Approximate), Expires: 08/28/2026 HIV-1/2 Antigen and Antibodies, Fourth Generation, with Reflexes Lab Routine Routine screening for STI (sexually transmitted infection) Expected: 08/28/2025 (Approximate), Expires: 08/28/2026 Hepatitis B surface antigen, EIA Lab Routine Routine screening for STI (sexually transmitted infection) Expected: 08/28/2025 (Approximate), Expires: 08/28/2026 documented as of this encounter Procedures Procedure Name Priority Date/Time Associated Diagnosis Comments CBC WITH AUTO DIFFERENTIAL Routine 08/28/2025 1:56 PM EST Rash COMPREHENSIVE METABOLIC PANEL Routine 08/28/2025 1:56 PM EST Rash documented in this encounter Results * (ABNORMAL) Comprehensive Metabolic Panel (08/28/2025 1:56 PM EST) Sodium 137 135 - 145 mmol/L [facility] Potassium 3.5 3.3 - 5.1 mmol/L [facility] Chloride 102 96 - 108 mmol/L [facility] Carbon Dioxide 25 22 - 29 mmol/L [facility] Anion Gap 14 12 - 20 [facility] Urea Nitrogen (BUN) 16 9 - 16 mg/dL [facility] Creatinine, Serum 0.91 0.5 - 1.4 mg/dL [facility] Estimated Glomerular Filt Rate >60 [facility] Comment:Chronic Kidney Disea se: Estimated GFR < 60 mL/min/[id number] Kidney Disease: Estimated GFR < 15 mL/min/1.73m2 Glucose 178(H) 60 - 115 mg/dL [facility] Calcium 9.7 8.4 - 10.2 mg/dL [facility] Bilirubin, Total 0.5 0.0 - 1.0 mg/dL [facility] Aspartate Amino Transferase 53(H) 5 - 37 U/L [facility] Alanine Aminotransferase 99(H) 0 - 40 U/L [facility] Total Protein 7.4 6.5 - 8.0 g/dL [facility] Albumin Level 4.9 3.5 - 5.0 g/dL [facility] Alkaline Phosphatase 81 39 - 117 U/L [facility] Blood Venous blood specimen / Unknown 08/28/2025 1:56 PM EST 08/28/2025 3:57 PM EST us Elvi Dao MD LAB BLOOD ORDERABLES Final Resul t [facility] [address] [place] [address] [phone] * (ABNORMAL) CBC auto differential (08/28/2025 1:56 PM EST) White Blood Count 6.7 4.8 - 10.8 X10*3/uL [facility] Red Blood Count 4.32(L) 4.60 - 5.80 X10*6/uL [facility] Hemoglobin 13.4(L) 14.0 - 18.0 g/dl [facility] Hematocrit 39.3(L) 42.0 - 52.0 % [facility] Mean Corpuscular Volume 91.0 80.0 - 98.0 fL [facility] Mean Corpuscular Hemoglobin 31.0 27.0 - 33.0 pg [facility] Mean Corpuscular HGB Conc 34.1 31.0 - 36.0 g/dl [facility] Red Cell Distribution Width 12.3 11.0 - 16.0 % [facility] Platelet Count 325 160 - 400 X10*3/uL [facility] Mean Platelet Volume 10.2 9.4 - 12.4 fL [facility] Neutrophils Percent Auto 62.0 45 - 73 % [facility] Imm Gran Pct Auto 0.9(H) 0.0 - 0.4 % [facility] Lymphocytes Percent Auto 29.4 20 - 40 % [facility] Monocytes Percent Auto 4.6 2 - 11 % [facility] Eosinophils Percent Auto 2.4 0 - 4 % [facility] Basophils Percent Auto 0.7 0 - 2 % [facility] NRBC Pct Auto 0.0 0.0 - 0.2 /100WBC [facility] Neutrophils Absolute Auto 4.2 2.0 - 8.3 x10*3/uL [facility] Imm Gran Abs Auto 0.06(H) 0.00 - 0.03 X10*3/uL [facility] Lymphocytes Absolute Auto 2.0 1.2 - 4.9 X10*3/uL [facility] Monocytes Absolute Auto 0.3 0.1 - 1.2 X10*3/uL [facility] Eosinophils Absolute Auto 0.2 0.0 - 0.4 X10*3/uL [facility] Basophils Absolute Auto 0.1 0.0 - 0.2 X10*3/uL [facility] NRBC Abs Auto 0.000 0.0 - 0.012 X10*3/uL [facility] Blood Venous blood specimen / Unknown 08/28/2025 1:56 PM EST 08/28/2025 3:57 PM EST us Elvi Dao MD LAB BLOOD ORDERABLES Final Resul t Performing Organization Address City/State/[facility] Co de Phone Number [facility] [address] [place] [address] [phone] documented in this encounter Visit Diagnoses Diagnosis Rash- Primary Rash and other nonspecific skin eruption Routine screening for STI (sexually transmitted infection) Screening examination for venereal disease Encounter for immunization documented in this encounter Additional Health Concerns Assessment Noted Time PHQ-9 Depression Total Score: 4 02/04/20 25 1:56 PM EDT documented as of this encounter Care Teams Hydraulic Boom Operator Relationship Specialty Start Date End Date Cheryle Rubalcava ANP [address] [place] [phone] PCP - General Family Medicine 08/14/22 documented as of this encounter
[2025-08-28 16:02] LABS: MANUAL DIFF FLAG NO
[2025-08-28 16:11] LABS: Hematocrit 39.3 % (42.0-52.0); Hemoglobin 13.4 g/dl (14.0-18.0); Imm Gran Abs Auto 0.06 X10*3/uL (0.00-0.03); Imm Gran Pct Auto 0.9 % (0.0-0.4); Lymphocytes Absolute Auto 2.0 X10*3/uL (1.2-4.9); Mean Corpuscular HGB Conc 34.1 g/dl (31.0-36.0); Mean Corpuscular Hemoglobin 31.0 pg (27.0-33.0); Mean Corpuscular Volume 91.0 fL (80.0-98.0); NRBC Abs Auto 0.000 X10*3/uL (0.0-0.012); NRBC Pct Auto 0.0 /100WBC (0.0-0.2); Platelet Count 325 X10*3/uL (160-400); Red Blood Count 4.32 X10*6/uL (4.60-5.80); White Blood Count 6.7 X10*3/uL (4.8-10.8)
[2025-08-28 17:16] LABS: Alanine Aminotransferase 99 U/L (0-40); Albumin Level 4.9 g/dL (3.5-5.0); Alkaline Phosphatase 81 U/L (39-117); Anion Gap 14 (12-20); Aspartate Amino Transferase 53 U/L (5-37); Blood Urea Nitrogen 16 mg/dL (9-16); Calcium 9.7 mg/dL (8.4-10.2); Carbon Dioxide 25 mmol/L (22-29); Chloride 102 mmol/L (96-108); Cholesterol 350 mg/dL (<200); Estimated Glomerular Filt Rate > 60; HDL Cholesterol 40 mg/dL (>40); Potassium 3.5 mmol/L (3.3-5.1); Sodium 137 mmol/L (135-145); Total Protein 7.4 g/dL (6.5-8.0); Triglycerides 603 mg/dL (<150)
--- OUTSIDE RECORDS SUMMARY | 2025-08-28 18:43 | XMS_ITS | Encounter Summary ---
Author Organization [employer] Address [address] [place] [address] Care Team Providers Care Senior Security Architect Name Role Phone Cheryle Rubalcava Primary Care Provider [phone] Reason for Visit * Reason Onset Date Comments Appointment Request 08/28/2025 Encounter Details Date Type Department Care Team ([facility] st Contact Info) Description 08/28/2025 Telephone [facility] MEDICINE [address] [place] [address] Cheryle Rubalcava ANP [address] [place] [address] Appointment Request Social History Tobacco Use Types Packs/Day Years [...] encounter Miscellaneous Notes * Telephone Encounter - Louise David RN - 08/28/2025 12:00 PM EST Pt states currently on his way to [facility]. Informed we close for lunch from 09-04. Offered ASK with Sylwia at 1pm. Pt agrees. * Telephone Encounter - Augustus Simon - 08/28/2025 11:40 AM EST Tc from pt requesting to r/s sick on site. Contact pt at [phone] documented in this encounter Plan of Treatment Upcoming Encounters Date Type Department Care Team (Late st Contact Info) Description 11/03/2025 11:15 AM EST Office Visit [facility] MED[facility]INE [address] [place] [address] Cheryle Rubalcava ANP [address] [place] [address] documented as of this encounter Visit Diagnoses Not on filedocumented in this encounter Additional Health Concerns Assessment Noted Time PHQ-9 Depression Total Score: 4 02/04/20 25 1:56 PM EDT documented as of this encounter Care Teams Senior Security Architect Relationship Specialty Start Date End Date Cheryle Rubalcava ANP [address] [place] [address] PCP - General Family Medicine 08/14/22 documented as of this encounter
--- OUTSIDE RECORDS SUMMARY | 2025-08-28 18:43 | XMS_ITS | Encounter Summary ---
Author Organization [employer] Address [address] [place] [address] Care Team Providers Care Down Filler Name Role Phone Cheryle Rubalcava Primary Care Provider [phone] Reason for Visit * Reason Onset Date Comments Med Refill 12/30/2023 Encounter Details Date Type Department Care Team (Late st Contact Info) Description 12/30/2023 Refill [facility]INE [address] [place], [place] [phone] Cheryle Rubalcava ANP [address] [place] [address] Anxiety and depression Social History Tobacco Use [...] Description 11/03/2025 11:15 AM EST Office Visit [facility] MEDICINE [address] [place] [address] Cheryle Rubalcava ANP [address] [place] [address] documented as of this encounter Visit Diagnoses Diagnosis Anxiety and depression documented in this encounter Additional Health Concerns Assessment Noted Time PHQ-9 Depression Total Score: 0 11/13/19 24 2:36 PM EST documented as of this encounter Care Teams Down Filler Relationship Specialty Start Date End Date Cheryle Rubalcava ANP [address] [place] [phone] PCP - General Family Medicine 08/14/22 documented as of this encounter
--- OUTSIDE RECORDS SUMMARY | 2025-08-28 18:43 | XMS_ITS | Encounter Summary ---
Author Organization [employer] Address [address] [place] [address] 7 [place] [address] Care Team Providers Care Chart Collector Name Role Phone Cheryle Rubalcava Primary Care Provider [phone] Encounter Details Date Type Department Care Team (Latest Contact Info) Description 08/28/2025 Travel Social History Tobacco Use Types Packs/Day [...] Description 11/03/2025 11:15 AM EST Office Visit [facility] MEDICINE [address] [place] [phone] Cheryle Rubalcava ANP [address] [place] [address] documented as of this encounter Visit Diagnoses Not on filedocumented in this encounter Additional Health Concerns Assessment Noted Time PHQ-9 Depression Total Score: 4 02/04/20 25 1:56 PM EDT documented as of this encounter Care Teams Chart Collector Relationship Specialty Start Date End Date Cheryle Rubalcava ANP [address] [place] [phone] PCP - General Family Medicine 08/14/22 documented as of this encounter
--- OUTSIDE RECORDS SUMMARY | 2025-08-28 18:43 | XMS_ITS | Encounter Summary ---
Author Organization [employer] Address [address] [place] [address] Care Team Providers Care Qa Test Analyst Name Role Phone Cheryle Rubalcava Primary Care Provider [phone] Reason for Visit * Reason Onset Date Comments Med Refill 02/24/2024 Encounter Details Date Type Department Care Team (Late st Contact Info) Description 02/24/2024 Refill [facility]INE [address] [place], [place] [phone] Cheryle Rubalcava ANP [address] [place] [address] Anxiety and depression; Impaired concentration Social History [...] Description 11/03/2025 11:15 AM EST Office Visit [facility] [address] [place] [address] Cheryle Rubalcava ANP [address] [place] [address] documented as of this encounter Visit Diagnoses Diagnosis Anxiety and depression Impaired concentration documented in this encounter Additional Health Concerns Assessment Noted Time PHQ-9 Depression Total Score: 0 11/13/19 24 2:36 PM EST documented as of this encounter Care Teams Qa Test Analyst Relationship Specialty Start Date End Date Cheryle Rubalcava ANP [address] [place] [address] PCP - General Family Medicine 08/14/22 documented as of this encounter
--- OUTSIDE RECORDS SUMMARY | 2025-08-28 18:43 | XMS_ITS | Encounter Summary ---
Author Organization [employer] Address [address] [place] [address] Care Team Providers Care Wood Car Builder Name Role Phone Cheryle Rubalcava Primary Care Provider [phone] Reason for Visit * Reason Onset Date Comments Med Refill 01/06/2024 Encounter Details Date Type Department Care Team (Late st Contact Info) Description 01/06/2024 Refill [facility] MED[facility]INE [address] [place], [place] [phone] Cheryle Rubalcava ANP [address] [place] [address] Anxiety and depression Social History Tobacco Use [...] Description 11/03/2025 11:15 AM EST Office Visit [facility]INE [address] [place] [phone] Cheryle Rubalcava ANP [address] [place] [address] documented as of this encounter Visit Diagnoses Diagnosis Anxiety and depression documented in this encounter Additional Health Concerns Assessment Noted Time PHQ-9 Depression Total Score: 0 11/13/19 24 2:36 PM EST documented as of this encounter Care Teams Wood Car Builder Relationship Specialty Start Date End Date Cheryle Rubalcava ANP [address] [place] [address] PCP - General Family Medicine 08/14/22 documented as of this encounter
--- OUTSIDE RECORDS SUMMARY | 2025-08-28 18:43 | XMS_ITS | Encounter Summary ---
Author Organization [employer] Address [address] [place] [address] Care Team Providers Care Supervisor Specialty Plant Name Role Phone Cheryle Rubalcava Primary Care Provider [phone] Reason for Visit * Reason Onset Date Comments Nurse Triage 08/23/2025 Encounter Details Date Type Department Care Team (Late st Contact Info) Description 08/23/2025 Telephone [facility]INE [address] [place] [address] Cheryle Rubalcava ANP [address] [place] [address] Nurse Triage Social History Tobacco Use Types [...] Telephone Encounter - Cristine Ruiz RN - 08/23/2025 3:47 PM EST called pt to triage, spoke to pt. pt states off and on since summer, has had a red, scaly, blistering rash on arms, legs, and hips. pt thought it was poison izabela but it never completely went away. pt denies any itching, one sided, drainage, spread, or other associated symptoms. pt has not taken anything for this as it is not itchy or painful. advised home care: rest, fluids, cool compresses, OTC hydrocortisone as needed, try Benadryl as needed and call back if worsening or new concerns. given appt Thursday with PCP at 11:30 for exam. pt understands and agrees with plan. Protocol Used: Rash or Redness - Widespread (Adult) Protocol-Based Disposition: long standing rash, scheduled within one week. Positive Triage Question: Rash, questions about * All higher-acuity triage questions were negative. Care Advice Discussed: * Reassurance and Education - Widespread Rash * Reasons To Call Back - Rash becomes purple or blood-colored or blister-like - Fever occurs or severe itching - You become worse * Telephone Encounter - Josephine Levy - 08/23/2025 3:25 PM EST Symptom: Hives Outcome: Schedule a same-day appointment or talk to a nurse or provider today Reason: Caller denied all higher acuity questions Please contact at [phone] documented in this encounter Plan of Treatment Upcoming Encounters Date Type Department Care Team (Late st Contact Info) Description 11/03/2025 11:15 AM EST Office Visit [facility] [address] [place] [address] Cheryle Rubalcava ANP [address] [place] [address] documented as of this encounter Visit Diagnoses Not on filedocumented in this encounter Additional Health Concerns Assessment Noted Time PHQ-9 Depression Total Score: 4 02/04/20 25 1:56 PM EDT documented as of this encounter Care Teams Supervisor Specialty Plant Relationship Specialty Start Date End Date Cheryle Rubalcava ANP [address] [place] [phone] PCP - General Family Medicine 08/14/22 documented as of this encounter
--- OUTSIDE RECORDS SUMMARY | 2025-08-28 18:43 | XMS_ITS | Clinical Summary ---
Author Organization [employer] Address [address] [place] [address] [address] [place] [address] Care Team Providers Care Teaching Artist Name Role Phone Cheryle Rubalcava CLAIRE Primary Care Provider [phone] Allergies No known active allergies Medications losartan (Cozaar) 50 MG tabletIndications :Primary hypertension Take 1 tablet (50 mg) by mouth Once per day. 90 tablet 3 12/20/19 25 026 Active Blood Pressure kitIndications:El evated blood pressure reading without diagnosis of hypertension 1 kit Once per day. 1 kit 12/20/19 25 Active atorvastatin (Lipitor) 20 MG tabletIndications :Dyslipidemia, goal LDL below 100 Take 1 tablet (20 mg) by mouth at bedtime. 90 tablet 3 12/21/19 25 026 Active buPROPion (Wellbutrin) 75 MG tabletIndications :Anxiety and depression,Impair ed concentration TAKE 1 TABLET BY MOUTH EVERY DAY 90 tablet 1 06/01/20 25 Active acetaminophen (Tylenol Extra Strength) 500 MG tablet Take two tablets every 8 hrs as needed for pain 30 tablet 06/14/20 25 Active Diclofenac Sodium 1 % gel Apply twice daily topically to the area twice daily prn 20 g 1 06/14/20 25 Active citalopram (CeleXA) 40 MG tabletIndications :Anxiety and depression TAKE 1 TABLET BY MOUTH EVERY DAY IN THE MORNING 90 tablet 07/31/20 25 Active triamcinolone (Kenalog) 0.1 % cream Apply topically if needed in the morning and at bedtime for rash or irritation. 45 g 2 08/28/20 25 Active predniSONE (Deltasone) 20 MG tablet Take 2 tablets (40 mg) by mouth Once per day for 3 days. 6 tablet 11 025 Active citalopram (CeleXA) 40 MG tabletIndications :Anxiety and depression TAKE 1 TABLET BY MOUTH EVERY DAY IN THE MORNING 90 tablet 05/04/20 025 Discontinued Hospital, Clinic, or Other Facility Administered Medication Ordered Dose Route Frequency Start Date End Date Status lidocaine (Xylocaine) 2 % injection 20 mgIndications:Neoplasm of uncertain behavior 20 mg IJ Once 06/17/2024 Active Active Problems Problem Noted Date Diagnosed Date Acute left ankle pain 02/07/2025 Status post vasectomy 12/19/2024 Anxiety and depression 12/23/2022 Impaired concentration 09/01/2022 Lyme disease, unspecified 04/02/2022 Resolved Problems Problem Noted Date Diagnosed Date Resolved Date Depression 05/28/2016 12/19/2024 Encounters Date Type Department Care Team Description 08/28/2025 1:00 PM EST Office Visit [address] [address] Elvi Dao MD Rash (Primary Dx); Routine screening for STI (sexually transmitted infection); Encounter for immunization 08/28/2025 Travel 08/28/[address] [address] Cheryle Rubalcava ANP Appointment Request 08/27/2025 Travel 08/25/2025 Telephone [facility] [address] [place] [phone] Janine Waggoner DC 08/23/[address] [address] Cheryle Rubalcava ANP Nurse Triage 07/29/[address] [address] Cheryle Rubalcava ANP Anxiety and depression 07/25/[address] [address] Cheryle Rubalcava ANP Nurse Triage 06/14/2025 9:30 AM EDT Office Visit [address] [address] Sadie Verduzco FNP Musculoskeletal back pain (Primary Dx); Numbness and tingling 06/14/2025 Travel 06/13/2025 Telephone [facility] [address] [place] [address] Cheryle Rubalcava ANP Nurse Triage 06/01/2025 Refill [facility] [address] [place] [address] Cheryle Rubalcava ANP Anxiety and depression; Impaired concentration from Last 3 Months Immunizations Immunization Administration Dates Next Due Hep B, adult 08/28/2025,11/13/2023 Influenza injectable quadriv alent preservative free 07/03/2023,08/14/2022,07/05/2018 Influenza, seasonal, injecta ble, preservative free 08/28/2025,12/19/2024 Pfizer Covid-19 Vaccine 12+ 08/28/2025, Pfizer Covid-19 Vaccine 12+ Bivalent 03/27/2023 Tdap 11/13/2023 Family History Medical History Relation Name Comments Macular degeneration Maternal Grandmother Relation Name Status Comments Maternal Grandmother Social History Tobacco Use Types Packs/Day Years [...] 20 08/28/2025 1:08 PM EST Oxygen Saturation 95% 06/14/2025 9:41 AM EDT Inhaled Oxygen Concentration - - Weight 82 kg (180 lb 12.8 oz) 08/28/2025 1:08 PM EST Height 174 cm (5' 8.5 ) 08/28/2025 1:08 PM EST Body Mass Index 27.09 08/28/2025 1:08 PM EST Plan of Treatment Upcoming Encounters Date Type Department Care Team (Late st Contact Info) Description 11/03/2025 11:15 AM EST Office Visit [facility] [address] [place] [address] Cheryle Rubalcava, ANP [address] [place] [address] Health Maintenance Due Date Last Done Comments CT Colonography 1977 Colonoscopy 1977 Dental Oral Exam 1977 Dental Prophylaxis 1977 Dental X-Ray: Bitewings 1977 Dental X-Ray: Full Mouth 1977 FIT 1977 Sigmoidoscopy 1977 Family Planning (PISQ) 1992 FOBT 12/17/2024 12/18/2023 Hepatitis B Vaccines (3 of 3 - 19+ 3-dose series) 10/23/2025 08/28/2025, 11/13/2023 SDOH Screening 12/12/2025 12/12/2024 Alcohol/Substance Use Screening 12/19/2025 12/19/2024 Depression Screening 02/03/2026 02/03/2025, 02/04/20 25 Disability Screening 02/03/2026 02/03/2025 Tobacco Screening 06/14/2026 06/14/2025 Colorectal Cancer Screening 12/17/2026 FIT DNA/Cologuard 12/17/2026 12/18/2023 Zoster Vaccines (1 of 2) 2027 Lipid Panel 08/28/2030 08/28/2025, 12/03, 11/13/2023, Additional history exists DTaP/Tdap/Td Vaccines (2 - Td or Tdap) 11/13/2033 11/13/2023 RSV Patients and Patients Aged 60 years or older (1 - 1-dose 75+ series) 2052 Hepatitis C Screening Completed 08/14/2022 HIV Screening Completed 11/13/2023, 08/14/2022 COVID-19 Vaccine Completed 08/28/2025, , 03/27/2023, Additional history exists Influenza Vaccine Completed 08/28/2025, , 07/03/2023, Additional history exists HIB Vaccines Aged Out [...] patient's age to complete this topic Meningococcal B Vaccine Aged Out No l onger eligible based on patient's age to complete this topic Meningococcal Vaccine Aged Out No leeanne el eligible based on patient's age to complete this topic Pneumococcal Vaccine: Pediatrics (0 to 5 Years) and At-Risk Patients (6 to 49) Years Aged Out No longer eligible based on patient's age to complete this topic RSV under 20 months Aged Out No longe r eligible based on patient's age to complete this topic Rotavirus Vaccines Aged Out No longer eligible based on patient's age to complete this topic Procedures Procedure Name Priority Date/Time Associated Diagnosis Comments COMPREHENSIVE METABOLIC PANEL Routine 08/28/2025 1:56 PM EST Rash CBC WITH AUTO DIFFERENTIAL Routine 08/28/2025 1:56 PM EST Rash LIPID PANEL, STANDARD Routine 08/28/2025 1:56 PM EST Dyslipidemia, goal LDL below 100 LAB COLOGUARD COLON CANCER SCREEN Routine 12/18/2023 8:12 AM EDT Screening for malignant neoplasm of colon HIV 1/2 ANTIGEN/ANTIBODY, FOURTH GENERATION W/RFL Routine 11/13/2023 3:30 PM EST Routine screening for STI (sexually transmitted infection) ZZZ HISTORICAL HEPATITIS C AB W/REFL TO HCV RNA, QN, PCR Routine 08/14/2022 11:59 AM EST from Last 3 Months or Most Recently Relevant to Health Maintenance Results * (ABNORMAL) CBC auto differential (08/28/2025 1:56 PM EST) White Blood Count 6.7 4.8 - 10.8 X10*3/uL [facility] Red Blood Count 4.32(L) 4.60 - 5.80 X10*6/uL [facility] Hemoglobin 13.4(L) 14.0 - 18.0 g/dl [facility] Hematocrit 39.3(L) 42.0 - 52.0 % [facility] Mean Corpuscular Volume 91.0 80.0 - 98.0 fL [facility] Mean Corpuscular Hemoglobin 31.0 27.0 - 33.0 pg [facility] Mean Corpuscular HGB Conc 34.1 31.0 - 36.0 g/dl [facility] Red Cell Distribution Width 12.3 11.0 - 16.0 % [facility] Platelet Count 325 160 - 400 X10*3/uL [facility] Mean Platelet Volume 10.2 9.4 - 12.4 fL [facility] Neutrophils Percent Auto 62.0 45 - 73 % [facility] Imm Gran Pct Auto 0.9(H) 0.0 - 0.4 % [facility] Lymphocytes Percent Auto 29.4 20 - 40 % [facility] Monocytes Percent Auto 4.6 2 - 11 % [facility] Eosinophils Percent Auto 2.4 0 - 4 % [facility] Basophils Percent Auto 0.7 0 - 2 % [facility] NRBC Pct Auto 0.0 0.0 - 0.2 /100WBC [facility] Neutrophils Absolute Auto 4.2 2.0 - 8.3 x10*3/uL [facility] Imm Gran Abs Auto 0.06(H) 0.00 - 0.03 X10*3/uL [facility] Lymphocytes Absolute Auto 2.0 1.2 - 4.9 X10*3/uL [facility] Monocytes Absolute Auto 0.3 0.1 - 1.2 X10*3/uL [facility] Eosinophils Absolute Auto 0.2 0.0 - 0.4 X10*3/uL [facility] Basophils Absolute Auto 0.1 0.0 - 0.2 X10*3/uL [facility] NRBC Abs Auto 0.000 0.0 - 0.012 X10*3/uL [facility] Blood Venous blood specimen / Unknown 08/28/2025 1:56 PM EST 08/28/2025 3:57 PM EST us Elvi Dao MD LAB BLOOD ORDERABLES Final Resul t [facility] [address] [place] [address] [phone] * (ABNORMAL) Lipid Panel, Standard (08/28/2025 1:56 PM EST) Triglycerides 603(H) <150 mg/dL [facility] Comment:Desirable Triglyceri de: less than 150 mg/dLBorderline High Triglyceride 150-199 mg/dLHigh Triglyceride: 200-499 mg/dLVery High Triglyceride: greater than or equal to 5OO mg/dL Cholesterol 350(H) <200 mg/dL [facility] Comment:Desirable Cholestero l: less than 200 mg/dLBorderline High Cholesterol: 200-239 mg/dLHigh Cholesterol: greater than 239 mg/dL LDL Cholesterol Calculated TNP <100 mg/dL [facility] Comment:Unable to calculate the LDL. The formula of Friedwald,Mendoza, and Татьяна is only valid if the triglycerides areless than 400 mg/dl. HDL Cholesterol 40(L) >40 mg/dL [facility] Comment:Desirable HDL: great er than 40 mg/dL Note: This HDL assay may give artificially low results in patients with liver disease. Blood Venous blood specimen / Unknown 08/28/2025 1:56 PM EST 08/28/2025 3:57 PM EST Cheryle Rubalcava [facility] LAB BLOOD ORDERABLES Final Resul t [facility] [address] [place] [phone] * (ABNORMAL) Comprehensive Metabolic Panel (08/28/2025 1:56 PM EST) Sodium 137 135 - 145 mmol/L [facility] Potassium 3.5 3.3 - 5.1 mmol/L [facility] Chloride 102 96 - 108 mmol/L [facility] Carbon Dioxide 25 22 - 29 mmol/L [facility] Anion Gap 14 12 - 20 [facility] Urea Nitrogen (BUN) 16 9 - 16 mg/dL [facility] Creatinine, Serum 0.91 0.5 - 1.4 mg/dL [facility] Estimated Glomerular Filt Rate >60 [facility] Comment:Chronic Kidney Disea se: Estimated GFR < 60 mL/min/1.20k1Kuddhl Kidney Disease: Estimated GFR < 15 mL/min/1.73m2 Glucose 178(H) 60 - 115 mg/dL [facility] Calcium 9.7 8.4 - 10.2 mg/dL [facility] Bilirubin, Total 0.5 0.0 - 1.0 mg/dL [facility] Aspartate Amino Transferase 53(H) 5 - 37 U/L [facility] Alanine Aminotransferase 99(H) 0 - 40 U/L [facility] Total Protein 7.4 6.5 - 8.0 g/dL [facility] Albumin Level 4.9 3.5 - 5.0 g/dL [facility] Alkaline Phosphatase 81 39 - 117 U/L [facility] Blood Venous blood specimen / Unknown 08/28/2025 1:56 PM EST 08/28/2025 3:57 PM EST us Elvi Dao MD LAB BLOOD ORDERABLES Final Resul t [facility] [address] [place] [address] [phone] * Cologuard?? colon cancer screening (12/18/2023 8:12 AM EDT) Cologuard Result Negative Negative 12/25/19 6:00 PM EDT [employer] (CLIA #:[id number]) Comment: NEGATIVE TEST RESULT. A negative Cologuard result indicates a low likelihood that a colorectal cancer (CRC) or advanced adenoma (adenomatous polyps with more advanced pre-malignant features) is present. The chance that a person with a negative Cologuard test has a colorectal cancer is less than 1 in 1500 (negative predictive value >99.9%) or has an advanced adenoma is less than 5.3% (negative predictive value 94.7%). These data are based on a prospective cross-sectional study of 10,000 individuals at average risk for colorectal cancer who were screened with both Cologuard and colonoscopy. (Dilma TBhaskar et al, N Engl J Med 2014;370(14):9294-8513) The normal value (reference range) for this assay is negative. COLOGUARD RE-SCREENING RECOMMENDATION: Periodic colorectal cancer screening is an important part of preventive healthcare for asymptomatic individuals at average risk for colorectal cancer. Following a negative Cologuard result, the [place] [employer] Society and U.S. Multi-Society Task Force screening guidelines recommend a Cologuard re-screening interval of 3 years. References: [place] [employer] Guideline for Colorectal Cancer Screening: https://www.cancer.org/cancer/eecyp-osecut-vlsksf/iejlwjvto-kwhjitrrl-dlohoqg/ac s-rec ommendations.html.; Can RIVERS, Huy KIM, Ruddy GROVES, Colorectal Cancer Screening: Recommendations for Physicians and Patients from the U.S. Multi-Society Task Force on Colorectal Cancer Screening , Am J Gastroenterology 2017; 112:8239-8236. TEST DESCRIPTION: Composite algorithmic analysis of stool DNA-biomarkers with hemoglobin immunoassay. Quantitative values of individual biomarkers are not [...] Sharma et al, N Engl J Med 2014;370(14):2439-7307.) Cologuard may produce a false negative or false positive result (no colorectal cancer or precancerous polyp present at colonoscopy follow up). A negative Cologuard test result does not guarantee the absence of CRC or advanced adenoma (pre-cancer). The current Cologuard screening interval is every 3 years. ([place] [employer] Society and U.S. Multi-Society Task Force). Cologuard performance data in a 10,000 patient pivotal study using colonoscopy as the reference method can be accessed at the following location: www.[employer]/results. Additional description of the Cologuard test process, warnings and precautions can be found at www.cologuard.com. Stool specimen (specimen) 12/18/2023 8:12 AM EDT 12/21/2023 12:13 PM EDT Cheryle Rubalcava [facility] LAB MOLECULAR DIAGNOSTICS ORDERA BLES Final Result Performing Organization Address City/[facility]/ZIP Co de Phone Number [employer] (CLIA #:[id number]) [address] [place] [address], * HIV-1/2 Antigen and Antibodies, Fourth Generation, with Reflexes (11/13/2023 3:30 PM EST) [facility] HIV AB/AG Nonreactive Nonreactive [facility] Comment:HIV-1 p24 Ag and/or HIV-1/HIV-2 Ab not detected.A test result that is nonreactive does not exclude thepossibility of exposure to or infection with HIV-1 and/orHIV-2. Nonreactive results in this assay for individualswith prior exposure to HIV-1 and/or HIV-2 may be due toantigen and antibody levels that are below the limit ofdetection of this assay.The [employer] HIV Ag/Ab Combo assay result andsupplemental assay results should be interpreted inconjunction with the patient's clinical presentation,history and other laboratory results. If the results areinconsistent with clinical evidence, additional testing issuggested to confirm the result. Blood Venous blood specimen / Unknown 11/13/2023 3:30 PM EST 11/13/2023 4:01 PM EST Cheryle Rubalcava [facility] LAB BLOOD ORDERABLES Final Resul t Performing Organization Address City/[facility]/ZIP Co de Phone Number [facility] [address] [place] [phone] * HEPATITIS C AB W/REFL TO HCV RNA, QN, PCR (08/14/2022 11:59 AM EST) Pathologist [facility] HEPATITIS C ANTIBODY NON-REACTI VE NON-REACT JESUS ALBERTO [facility] INDEX 0.07 <1.00 [facility] Comment: HCV antibody was non-reactive. There is no laboratory evidence of HCV infection. In most cases, no further action is required. However, if recent HCV exposure is suspected, a test for HCV RNA (test code 60311) is suggested. For additional information please refer to http://[employer]onic/faq/GLT06u6 (This link is being provided for informational/ educational purposes only.) 08/14/2022 11:5 9 AM EST us Cheryle RANGEL HISTORICAL/NON ORDERABLE LABS Fi nal Result [facility] from Last 3 Months or Most Recently Relevant to Health Maintenance Insurance [facility] PPO Care Teams Teaching Artist Relationship Specialty Start Date End Date Cheryle Rubalcava ANP [address] [place] [phone] PCP - General Family Medicine 08/14/22
--- OUTSIDE RECORDS SUMMARY | 2025-08-28 18:43 | XMS_ITS | Encounter Summary ---
Author Organization [employer] Address [address] [place] [address] [address] [place] [address] Care Team Providers Care Marine Engineer Cpvec Name Role Phone Cheryle Rubalcava CLAIRE Primary Care Provider [phone] Reason for Visit * Reason Comments Med Refill Encounter Details Date Type Department Care Team ([facility] st Contact Info) Description 03/03/2025 Refill [facility] MEDICINE [address] [place] [address] Sadie Verduzco FNP [address] [place] [address] Acute left ankle pain Social History Tobacco Use Types Packs/Day Years [...] Description 11/03/2025 11:15 AM EST Office Visit [facility] MEDICINE [address] [place] [phone] Cheryle Rubalcava ANP [address] [place] [phone] documented as of this encounter Visit Diagnoses Diagnosis Acute left ankle pain documented in this encounter Additional Health Concerns Assessment Noted Time PHQ-9 Depression Total Score: 4 02/04/20 25 1:56 PM EDT documented as of this encounter Care Teams Marine Engineer Cpvec Relationship Specialty Start Date End Date Cheryle Rubalcava ANP [address] [place] [phone] PCP - General Family Medicine 08/14/22 documented as of this encounter
--- OUTSIDE RECORDS SUMMARY | 2025-08-28 18:43 | XMS_ITS | Encounter Summary ---
Author Organization [employer] Address [address] [place] [address] Care Team Providers Care Manager Semiconductor Name Role Phone Cheryle Rubalcava Primary Care Provider [phone] Reason for Visit * Reason Onset Date Comments Med Refill 03/28/2024 Encounter Details Date Type Department Care Team (Late st Contact Info) Description 03/28/2024 Telephone [facility] MEDICINE [address] [place] [address] Cheryle Rubalcava ANP [address] [place] [address] Med Refill Social History Tobacco Use Types [...] Medication was sent to [facility] #[id number] on 02/26/24 #30 with 1 refill. * Telephone Encounter - Yana Moore - 03/28/2024 11:31 AM EDT TC from pt requesting medication refill. Medications needing refill : citalopram (CeleXA) 40 MG tablet To be sent to: [facility]/pharmacy #[id number] - [place] - [address] documented in this encounter Plan of Treatment Upcoming Encounters Date Type Department Care Team (Late st Contact Info) Description 11/03/2025 11:15 AM EST Office Visit [facility] MEDICINE [address] [place] [address] Cheryle Rubalcava ANP [address] [place] [address] documented as of this encounter Visit Diagnoses Not on filedocumented in this encounter Additional Health Concerns Assessment Noted Time PHQ-9 Depression Total Score: 0 11/13/19 2:36 PM EST documented as of this encounter Care Teams Manager Semiconductor Relationship Specialty Start Date End Date Cheryle Rubalcava ANP [address] [place] [address] PCP - General Family Medicine 08/14/22 documented as of this encounter
--- OUTSIDE RECORDS SUMMARY | 2025-08-28 18:43 | XMS_ITS | Encounter Summary ---
Author Organization [employer] Address [address] [place] [address] Care Team Providers Care Banking Specialist Name Role Phone Cheryle Rubalcava Primary Care Provider [phone] Reason for Visit * Reason Comments Med Refill Encounter Details Date Type Department Care Team (Late st Contact Info) Description 01/20/[address] [phone] Cheryle Rubalcava ANP [address] [place] [phone] Social History Tobacco Use Types Packs/Day Years [...] 11:15 AM EST Office Visit [facility] MEDICINE [address] [place] [phone] Cheryle Rubalcava ANP [address] [place] [phone] documented as of this encounter Visit Diagnoses Not on filedocumented in this encounter Care Teams Banking Specialist Relationship Specialty Start Date End Date Cheryle Rubalcava ANP [address] [place] [address] PCP - General Family Medicine 08/14/22 documented as of this encounter
--- OUTSIDE RECORDS SUMMARY | 2025-08-28 18:43 | XMS_ITS | Encounter Summary ---
Author Organization [employer] Address [address] [place] [address] Care Team Providers Care Test Engine Evaluator Name Role Phone Cheryle Rubalcava Primary Care Provider [phone] Reason for Visit * Reason Onset Date Comments Med Refill 03/25/2024 Encounter Details Date Type Department Care Team (Late st Contact Info) Description 03/25/2024 Refill [facility] MEDICINE [address] [place], [place] [phone] Cheryle Rubalcava ANP [address] [place] [address] Anxiety and depression Social History Tobacco Use [...] Description 11/03/2025 11:15 AM EST Office Visit [facility] MEDICINE [address] [place] [phone] Cheryle Rubalcava ANP [address] [place] [address] documented as of this encounter Visit Diagnoses Diagnosis Anxiety and depression documented in this encounter Additional Health Concerns Assessment Noted Time PHQ-9 Depression Total Score: 0 11/13/19 24 2:36 PM EST documented as of this encounter Care Teams Test Engine Evaluator Relationship Specialty Start Date End Date Cheryle Rubalcava ANP [address] [place] [phone] PCP - General Family Medicine 08/14/22 documented as of this encounter
--- OUTSIDE RECORDS SUMMARY | 2025-08-28 18:43 | XMS_ITS | Encounter Summary ---
Author Organization [employer] Address [address] [place] [address] Care Team Providers Care Field Inspector Name Role Phone Cheryle Rubalcava Primary Care Provider [phone] Reason for Visit * Reason Onset Date Comments Med Refill 03/17/2024 Encounter Details Date Type Department Care Team (Late st Contact Info) Description 03/17/2024 Refill [facility] MEDICINE [address] [place] [address] Cheryle Ruablcava ANP [address] [place] [address] Anxiety and depression Social History Tobacco Use [...] Description 11/03/2025 11:15 AM EST Office Visit [facility] MEDICINE [address] [place] [address] Cheryle Rubalcava ANP [address] [place] [address] documented as of this encounter Visit Diagnoses Diagnosis Anxiety and depression documented in this encounter Additional Health Concerns Assessment Noted Time PHQ-9 Depression Total Score: 0 11/13/19 24 2:36 PM EST documented as of this encounter Care Teams Field Inspector Relationship Specialty Start Date End Date Cheryle Rubalcaav ANP [address] [place] [phone] PCP - General Family Medicine 08/14/22 documented as of this encounter
--- OUTSIDE RECORDS SUMMARY | 2025-08-28 18:43 | XMS_ITS | Encounter Summary ---
Author Organization [employer] Address [address] [place] [address] Care Team Providers Care Asset Protection Greeter Name Role Phone Cheryle Rubalcava Primary Care Provider [phone] Reason for Visit * Reason Onset Date Comments Med Refill 12/01/2024 Encounter Details Date Type Department Care Team (Late st Contact Info) Description 12/01/2024 Telephone [facility] [address] [place] [address] Cheryle Rubalcava ANP [address] [place] [address] Med Refill Social History Tobacco Use Types [...] 75 MG tablet To be sent to: [facility]/pharmacy #[id number] NEXT TO RamoneMARY documented in this encounter Plan of Treatment Upcoming Encounters Date Type Department Care Team (Late st Contact Info) Description 11/03/2025 11:15 AM EST Office Visit [facility] [address] [place] [address] Cheryle Rubalcava ANP [address] [place] [address] documented as of this encounter Visit Diagnoses Not on filedocumented in this encounter Additional Health Concerns Assessment Noted Time PHQ-9 Depression Total Score: 0 11/13/19 24 2:36 PM EST documented as of this encounter Care Teams Asset Protection Greeter Relationship Specialty Start Date End Date Cheryle Rubalcava ANP [address] [place] [address] PCP - General Family Medicine 08/14/22 documented as of this encounter
--- OUTSIDE RECORDS SUMMARY | 2025-08-28 18:43 | XMS_ITS | Clinical Summary ---
Author Organization [facility] Address [address] [place] [address] [place] [address] Phone Care Team Providers Care Tinsmith Helper Name Role Phone Cheryle Rubalcava NP Primary Care Provider [phone] Encounters Date Type Department Care Team Description 08/07/2025 10:45 AM EST Office Visit [facility] [address] [place] [address] Sadie Verduzco NP [place], Sydney Grace, VALERIA Acute left-sided low back pain, unspecified whether sciatica present (Primary Dx) 06/16/2025 Transcribe Orders [facility] [address] [place] [address] Sadie Verduzco NP Encounter for rehabilitation (Primary Dx) from Last 3 Months Social History Tobacco Use Types Packs/Day Years Used Date Smoking Tobacco: Never Assessed Education Answer Date Recorded Are you interested in more education? Not on ebonie e 06/22/2025 Are you concerned about learning? Not on file 06/22/2025 No 06/22/2025 No 06/22/2025 Digital Access Answer Date Recorded No 06/22/2025 No 06/22/2025 Reliable internet access at home? Not on file 06/22/2025 Device with a working camera? Not on file Sex and Gender Information Value Date Recorded Sex Assigned at Not on file Legal Sex Male 3:24 PM EDT Gender Identity Not on file Sexual Orientation Not on file Plan of Treatment Upcoming Encounters Date Type Department Care Team (Late st Contact Info) Description 09/04/2025 10:45 AM EST Office Visit [facility] [address] [place] [address] [place] [address] Sadie Verduzco, RENTAL CAR FERRY DRIVER [address] [place] [address] Alejandro Calix, DIE TRIPPER [address] [place] [address] 09/11/2025 10:45 AM EST Office Visit [facility] [address] [place] [address] Sadie Verduzco, RENTAL CAR FERRY DRIVER [address] [place] [address] Alejandro Calix, DIE TRIPPER [address] [place] [address] 09/18/2025 10:45 AM EST Office Visit [address] [address] Sadie Verduzco, RENTAL CAR FERRY DRIVER [address] [place] [address] Roz Rollins, PT [address] [place] [address] 09/25/2025 10:45 AM EST Office Visit [address] [address] Sadie Verduzco, RENTAL CAR FERRY DRIVER [address] [place] [address] Alejandro Calix, DIE TRIPPER [address] [place] [address] 10/02/2025 10:45 AM EST Office Visit [address] [address] Sadie Verduzco, RENTAL CAR FERRY DRIVER [address] [place] [address] Roz Rollins, PT [address] [place] [address] [email or web address] Health Maintenance Due Date Last Done Comments Adult Td,Tdap Booster 1977 LIPID PANEL 1977 DEPRESSION SCREENING 1989 SMOKING Hx and SMOKELESS TOB ACCO SCREENING 1990 HEPATITIS C SCREENING 1995 HIV ONE-TIME SCREENING (18-6 5 YEARS) 1995 COLOGUARD 2022 COLONOSCOPY 2022 COLORECTAL CANCER SCREENING 2022 FIT TEST 2022 FOBT 2022 SIGMOIDOSCOPY 2022 VIRTUAL COLONOSCOPY 2022 INFLUENZA VACCINE (#1) 2025 COVID-19 VACCINE ( - 2024-2 6 season) 2025 HEPATITIS A VACCINES Aged Out No long er eligible based on patient's age to complete this topic HIB VACCINES Aged Out No longer eligi ble based on patient's age to complete this topic MENINGOCOCCAL VACCINES (ACWY) Aged Out No longer eligible based on patient's age to complete this topic MENINGOCOCCAL VACCINES (B) Aged Out N o longer eligible based on patient's age to complete this topic PNEUMOCOCCAL VACCINES (0-49 years) Aged Out No longer eligible based on patient's age to complete this topic Medical Devices Not on file Procedures Procedure Name Priority Date/Time Associated Diagnosis Comments AMB REFERRAL TO [facility] Routine 08/07/2025 1:04 PM EST Encounter for rehabilitation from Last 3 Months Results * Ambulatory referral to [facility] Physical Therapy (08/07/2025 1:04 PM EST) Other us Sadie Verduzco NP AMB [facility] REFERRALS Final R esult from Last 3 Months Insurance [facility] OUT OF STATE PPO [employer] OUT OF STATE PPO [employer] OUT OF STATE PPO [employer] OUT OF [place] [address] [place] [address] OUT OF STATE PPO [employer] OUT OF [facility] PPO Care Teams Tinsmith Helper Relationship Specialty Start Date End Date Cheryle Rubalcava NP [address] [place] [id number] PCP - General Nurse Practitioner 06/16/25 Additional Source Comments The information contained in this document represents components of the legal health record. It is not the complete legal health record.[facility]
--- OUTSIDE RECORDS SUMMARY | 2025-08-28 18:43 | XMS_ITS | Encounter Summary ---
Author Organization [employer] Address [address] [place] [address] [address] [place] [address] Care Team Providers Care Manager Student Services Name Role Phone Cheryle Rubalcava Primary Care Provider [phone] Encounter Details Date Type Department Care Team (Latest Contact Info) Description 08/27/2025 Travel Social History Tobacco Use Types Packs/Day [...] Office Visit [facility] [address] [place] [address] Cheryle Rubalcava ANP [address] [place] [address] documented as of this encounter Visit Diagnoses Not on filedocumented in this encounter Additional Health Concerns Assessment Noted Time PHQ-9 Depression Total Score: 4 02/04/20 25 1:56 PM EDT documented as of this encounter Care Teams Manager Student Services Relationship Specialty Start Date End Date Cheryle Rubalcava ANP [address] [place] [address] PCP - General Family Medicine 08/14/22 documented as of this encounter
--- OUTSIDE RECORDS SUMMARY | 2025-08-28 18:43 | XMS_ITS | Encounter Summary ---
Author Organization [employer] Address [address] [facility] [address] [place] [address] Care Team Providers Care Harness Installer Name Role Phone Cheryle Rubalcava CLAIRE Primary Care Provider [phone] Encounter Details Date Type Department Care Team (Late st Contact Info) Description 08/25/2025 Telephone [facility] [address] [place], [place] [id number] Janine Waggoner MA Social History Tobacco Use Types Packs/Day Years [...] encounter Miscellaneous Notes * Telephone Encounter - Janine Waggoner MA - 08/25/2025 10:57 AM EST Chart Prep Labs: not done Images: done Referrals: not applicable Vaccines due: Covid, Flu, and Hep B Screenings: not applicable Overdue care gaps: Not applicable documented in this encounter Plan of Treatment Upcoming Encounters Date Type Department Care Team (Late st Contact Info) Description 11/03/2025 11:15 AM EST Office Visit [facility] [address] [place] [address] Cheryle Rubalcava ANP [address] [place] [address] documented as of this encounter Visit Diagnoses Not on filedocumented in this encounter Additional Health Concerns Assessment Noted Time PHQ-9 Depression Total Score: 4 02/04/20 25 1:56 PM EDT documented as of this encounter Care Teams Harness Installer Relationship Specialty Start Date End Date Cheryle Rubalcava ANP [address] [place] [address] PCP - General Family Medicine 08/14/22 documented as of this encounter
[2025-08-29 04:35] LABS: Syphilis Screen Nonreactive (Nonreactive)
[2025-08-29 05:28] LABS: HBsAGNum1 0.40 S/CO (0.00-0.99); HIV Num 1 0.06 S/CO (0.00-0.99); Hepatitis B Surface Antigen Negative (Negative); ~HepC Num1 0.08 S/CO (0.00-0.79); ~Hepatitis C Antibody Nonreactive (Nonreactive)
== END 2025-08-28 13:49 | disposition home or self-care (01) ==
LOC: HO.HHCL 13:48
PROVIDERS: PCP Nurse Practitioner Primary Care; Visit Provider Family Medicine
DX: Z11.3 Encounter for screening for infections with a predominantly sexual mode of transmission (principal); Z11.4 Encounter for screening for human immunodeficiency virus [HIV]; Z11.59 Encounter for screening for other viral diseases; E78.5 Hyperlipidemia, unspecified; R21 Rash and other nonspecific skin eruption
CPT/HCPCS: 36415; 80053; 80061; 85025; 86780; 86803; 87340; 87389